=== PATIENT | female | born 1985 | race Caucasian/White ===

== ENCOUNTER 2016-05-20 11:36 | Outpatient (CLI) ==
[2012-10-31 13:44] VITALS: TEMP 97.1
[2016-05-05 17:15] VITALS: BMI 21.1
--- NOTE | 2016-05-20 11:57 | DI ---
EXAM: Two-view chest HISTORY: Emphysema. TECHNIQUE: Frontal and lateral views of the chest were obtained. Comparison 01/30/2016. FINDINGS: The heart is stable size. Lungs are clear. The pulmonary vasculature appears normal. T he osseous structures and mediastinal contours are normal. IMPRESSION: No active cardiopulmonary disease.
== END 2016-05-20 11:37 | disposition home or self-care (01) ==
LOC: RAD 11:36
PROVIDERS: ATTEND Nurse Practitioner Family
DX: J43.9 Emphysema, unspecified (principal)

== ENCOUNTER 2016-09-16 11:57 | Outpatient (CLI) ==
[2012-10-31 13:44] VITALS: TEMP 97.1
[2016-05-05 17:15] VITALS: BMI 21.1
--- NOTE | 2016-09-16 12:38 | DI ---
EXAM: Four views of the left knee HISTORY: Left knee pain. COMPARISON: Right knee x-ray 09/16/2016 FINDINGS: Medial and lateral compartments of the left knee are normal. There is no lytic or blastic lesion. The patella is normal in position without fracture. The soft tissues are normal. There is no displaced fracture or dislocation. IMPRESSION: No acute abnormality or displaced fracture of the left knee.
--- NOTE | 2016-09-16 12:38 | DI ---
EXAM: Four views of the right knee HISTORY: Right knee pain. COMPARISON: Same day left knee x-ray FINDINGS: Medial compartment is mildly narrowed. The lateral compartment is unremarkable. The ledesma lla is normal in position without fracture. There is no displaced fracture or dislocation. Soft ti ssues are unremarkable. There is no lytic or blastic lesion. IMPRESSION: No acute abnormality or displaced fracture with mild medial compartmental narrowing.
== END 2016-09-16 11:58 | disposition home or self-care (01) ==
LOC: RAD 11:57
PROVIDERS: ATTEND Nurse Practitioner Family
DX: M25.561 Pain in right knee (principal)

== ENCOUNTER 2016-09-20 14:28 | Emergency (ER) ==
[2016-09-20 14:34] VITALS: BP 120/78; TEMP 97.5; BMI 22.5
--- NOTE | 2016-09-20 14:51 | ED.PDOC ---
General ED Provider: Dr. CURTIS CHAWLA Chief Complaint: Tooth Problem Stated Complaint: dental pain/ extraction 2 days ago Time Seen by Physician: 14:30 (seen with may at all times ) Mode of Arrival: Walk-In Information Source: Patient Exam Limitations: No limitations Primary Care Provider: [facility] Nursing and Triage Documentation Reviewed and Agree: Yes (May present) EENT Complaint Exam - Dental/Oral Complaint/Exam Mechanism of Injury: Trauma (extraction 2 days ago) Onset/Duration: 2 days Timing: Constant Initial Severity: Moderate Current Severity: Moderate (took a norco belonging to her ) Character: Reports: Dull, Aching Aggravating: Reports: Heat, Cold, Chewing Alleviating: Reports: None Associated Signs and Symptoms: Denies: Swelling, Discharge, Fever, Foul odor, Foul taste in mouth Related History: Reports: Similar episode Cardiac Risk Factors: Reports: None Dental/Oral Surgical History: Reports: None Tooth Findings: Present: Gross caries (sacttered . no changes consistent with extractions noted ) Cervical Lymphadenopathy Present: No Review of Systems - Review Of Systems Constitutional: Reports: No symptoms Eyes: Reports: No symptoms Ears, Nose, Mouth, Throat: Reports: No symptoms Respiratory: Reports: No symptoms Cardiac: Reports: No symptoms GI: Reports: No symptoms : Reports: No symptoms Musculoskeletal: Reports: No symptoms Skin: Reports: No symptoms Neurological: Reports: No symptoms Endocrine: Reports: No symptoms Hematologic/Lymphatic: Reports: No symptoms All Other Systems: Reviewed and Negative Past Medical History - Past Medical History Previously Healthy: Yes Endocrine: Reports: None Cardiovascular: Reports: None Respiratory: Reports: None, COPD (spontaneous pneumothroax,) Hematological: Reports: None Gastrointestinal: Reports: None Genitourinary: Reports: None Neuro/Psych: Reports: Anxiety Musculoskeletal: Reports: None Cancer: Reports: None Last Menstrual Period: na Other Pertinent Past Medical History: female surgery , hysterectomy / colapse lunganxietycopd - Surgical History General Surgical History: Reports: Hysterectomy, Tonsillectomy, Other (female surgery / collapsed lung), Unknown (thoracotomy ) - Family History Family History: Reports: Unknown - Social History Smoking Status: Current every day smoker, Heavy tobacco smoker Hx Substance Use: No (frequent ER visits for pain) Alcohol Screening: None - Immunizations Tetanus Shot up to Date: Yes Physical Exam - Physical Exam Appearance: Well-appearing, No pain distress, Well-nourished Eyes: BARBARA, EOMI, Conjunctiva clear ENT: Ears normal, Nose normal, Oropharynx normal Respiratory: Airway patent, Breath sounds clear, Breath sounds equal, Respirations nonlabored Cardiovascular: RRR, Pulses normal, No rub, No murmur GI/: Soft, Nontender, No masses, Bowel sounds normal, No Organomegaly Musculoskeletal: Normal strength, ROM intact, No edema, No calf tenderness Skin: Warm, Dry, Normal color Neurological: Sensation intact, Motor intact, Reflexes intact, Cranial nerves intact, Alert, Oriented Psychiatric: Affect appropriate, Mood appropriate Critical Care Note - Critical Care Note Total Time (mins): 0 Course - Course Vital Signs: Temp Pulse Resp BP Pulse Ox 09/20/16 14:29 97.5 F L 76 16 120/78 98 Departure - Departure Time of Disposition: 14:52 (may at bedside at all times) Disposition: HOME SELF-CARE Discharge Problem: Toothache Instructions: Toothache (ED), Dental Caries (ED) Condition: Good Pt referred to PMD for follow-up: No Allergies/Adverse Reactions: Allergies codeine Adverse Reaction (Verified 09/20/16 14:38) morphine Adverse Reaction (Verified 09/20/16 14:38) PT STATES HAS B/P ISSUES WITH MORPHINE oxaprozin [From Daypro] Adverse Reaction (Verified 09/20/16 14:38) prednisone Adverse Reaction (Verified 09/20/16 14:38) Sulfa (Sulfonamide Antibiotics) Adverse Reaction (Verified 09/20/16 14:38) Home Medications: Ambulatory Orders Estradiol 1 each TD DAILY 09/16/16 Ampicillin Trihydrate [Ampicillin] 500 mg PO TID 09/20/16
== END 2016-09-20 15:00 | disposition home or self-care (01) ==
LOC: ED 14:28
DX: K08.89 Other specified disorders of teeth and supporting structures (principal); K02.7 Dental root caries; K08.409 Partial loss of teeth, unspecified cause, unspecified class; Z98.890 Other specified postprocedural states
CPT/HCPCS: 99282

== ENCOUNTER 2016-12-29 09:49 | Emergency (ER) ==
[2016-12-29 09:54] VITALS: BP 124/85; TEMP 97.6; BMI 22.7
[2016-12-29] MEDS ORDERED: TORADOL IM STA (10:08)
[2016-12-29 10:19] LABS: BASOPHILS % (AUTO) 0.5 % (0.0-3.0); EOSINOPHILS # (AUTO) 0.1 K/ul (0.0-0.7); EOSINOPHILS % (AUTO) 1.4 % (0.0-7.0); HEMATOCRIT 44.5 % (37.0-47.0); HEMOGLOBIN 15.4 g/dl (12.0-16.0); IMMATURE GRANULOCYTE % (AUTO) 0.3 % (0.0-5.0); LYMPHOCYTES # (AUTO) 1.9 K/uL (0.60-3.4); LYMPHOCYTES % (AUTO) 24.7 (10.0-50.0); MEAN CORPUSCULAR HEMOGLOBIN 30.6 pg (27.0-31.0); MEAN CORPUSCULAR HGB CONC 34.6 (31.8-35.4); MEAN CORPUSCULAR VOLUME 88.5 fl (81.0-99.0); MONOCYTES # (AUTO) 0.6 K/uL (0.4-2.0); MONOCYTES % (AUTO) 7.1 (0-10); NEUTROPHILS # (AUTO) 5.1 K/ul (2.0-6.9); PLATELET COUNT 261 10^3/uL (140-440); RED BLOOD COUNT 5.03 10^6/ul (4.20-5.40); WHITE BLOOD COUNT 7.77 K/ul (4.6-10.2)
[2016-12-29 10:44] LABS: ALBUMIN 4.2 g/dL (3.4-5.0); ALBUMIN/GLOBULIN RATIO 1.45; ANION GAP 13.8; BILIRUBIN,TOTAL 0.64 mg/dL (0.00-1.20); CALCIUM 9.6 mg/dL (8.2-10.2); CREATININE 0.75 mg/dL (0.60-1.30); POTASSIUM 3.8 mmol/L (3.5-5.10); TOTAL PROTEIN 7.1 g/dL (6.4-8.2)
--- NOTE | 2016-12-29 10:48 | US ---
Exam: Bishop-scale and color Doppler ultrasonographic evaluation of the right upper quadrant. Comparison: CT abdomen pelvis performed on the same day. CT abdomen pelvis performed 05/02/2015. Reason for exam: Pain right upper quadrant. FINDINGS: The liver measures approximately 10.98 cm in length with normal appearing echotexture and no intrahepatic ductal dilatation. There is normal antegrade portal venous flow without perihepati c free fluid. The gallbladder is unremarkable without intraluminal stone, sludge or polyp. The gallbladder wall measures 0.19 cm which is within normal limits. The common bile duct is unremarkable measuring 0.33 cm without intraluminal stone or polyp. The partially imaged pancreas is unremarkable. The right kidney measures 11.20 x 3.94 x 4.57 cm without hydronephrosis or nephrolithiasis. Impression: Unremarkable ultrasonographic evaluation of the right upper quadrant.
--- NOTE | 2016-12-29 10:49 | CT ---
EXAM: CT Abdomen without contrast. CT Pelvis without contrast. HISTORY: Right upper quadrant pain. COMPARISON: 05/02/2015. TECHNIQUE: Multiple axial images of the abdomen and pelvis were obtained without intravenous contra st. Images were reformatted in the coronal plane. FINDINGS: Please note that evaluation of the abdominal and pelvic structures is limited due to lack of intravenous contrast. The lung bases are clear. No acute osseous abnormality identified. The liver, gallbladder, pancreas, spleen, adrenal glands, and kidneys demonstrate normal contour. N o calcified renal stones or hydronephrosis detected. The bowel is normal in course and caliber without evidence for obstruction or inflammatory process. The appendix is normal best seen on coronal image 33. Uterus is absent. Urinary bladder is unrema rkable. No free fluid or free air identified. IMPRESSION: No acute abnormality within the abdomen or pelvis.
--- NOTE | 2016-12-29 11:02 | ED.PDOC ---
General ED Provider: Dr. CURTIS CHAWLA Chief Complaint: Abdominal Pain Stated Complaint: RUQ PAIN Time Seen by Physician: 10:00 (SEEN WITH NURSING STAFF AT ALL TIMES NEGATIVE TRAUMA ) Mode of Arrival: Walk-In Information Source: Patient Exam Limitations: No limitations Primary Care Provider: COLLIN BELTRAN Nursing and Triage Documentation Reviewed and Agree: Yes GI Complaint Exam - Abdominal Pain Complaint/Exam Onset: Gradual Duration: TODAY Symptoms Are: Resolved Timing: Intermittent Initial Severity: Moderate Current Severity: None Location of Pain: RUQ Character: Reports: Aching Aggravating: Reports: None Alleviating: Reports: None Associated Signs and Symptoms: Denies: Diaphoresis, Fever, Cough, Chest pain, Dizziness, Back pain, Constipation, Blood in stool, Dysuria, Urinary frequency, Decreased urine output, Decreased appetite, Vaginal bleeding, Vaginal discharge , Nausea, Vomiting, Diarrhea, Sore throat, Decreased activity AAA Risk Factors: Reports: None Cardiac Risk Factors: Reports: Smoking Ectopic Risk Factors: Reports: None Ovarian Torsion Risk Factors: Reports: None Surgical Obstruction Risk Factors: Reports: None Related Surgical History: Reports: None Differential Diagnoses: Bowel Obstruction, Constipation, Gastroenteritis, Pancreatitis Review of Systems - Review Of Systems Constitutional: Reports: No symptoms Eyes: Reports: No symptoms Ears, Nose, Mouth, Throat: Reports: No symptoms Respiratory: Reports: No symptoms Cardiac: Reports: No symptoms GI: Reports: Abdominal pain : Reports: No symptoms Musculoskeletal: Reports: No symptoms Skin: Reports: No symptoms Neurological: Reports: No symptoms Endocrine: Reports: No symptoms Hematologic/Lymphatic: Reports: No symptoms All Other Systems: Reviewed and Negative Past Medical History - Past Medical History Previously Healthy: Yes Endocrine: Reports: None Cardiovascular: Reports: None Respiratory: Reports: None, COPD (spontaneous pneumothroax,) Hematological: Reports: None Gastrointestinal: Reports: None Genitourinary: Reports: None Neuro/Psych: Reports: Anxiety Musculoskeletal: Reports: None Cancer: Reports: None Last Menstrual Period: N/A Other Pertinent Past Medical History: female surgery , hysterectomy / colapse lunganxietycopd - Surgical History General Surgical History: Reports: Hysterectomy, Tonsillectomy, Other (female surgery / collapsed lung), Unknown (thoracotomy ) - Family History Family History: Reports: Unknown - Social History Smoking Status: Current every day smoker, Heavy tobacco smoker Hx Substance Use: No (frequent ER visits for pain) Alcohol Screening: None - Immunizations Tetanus Shot up to Date: Yes Physical Exam - Physical Exam Appearance: Well-appearing, No pain distress, Well-nourished Eyes: BARBARA, EOMI, Conjunctiva clear ENT: Ears normal, Nose normal, Oropharynx normal Respiratory: Airway patent, Breath sounds clear, Breath sounds equal, Respirations nonlabored Cardiovascular: RRR, Pulses normal, No rub, No murmur GI/: Soft, Nontender, No masses, Bowel sounds normal, No Organomegaly Musculoskeletal: Normal strength, ROM intact, No edema, No calf tenderness Skin: Warm, Dry, Normal color Neurological: Sensation intact, Motor intact, Reflexes intact, Cranial nerves intact, Alert, Oriented Psychiatric: Affect appropriate, Mood appropriate Interpretation - Radiology Interpretation Radiology Interpretation By: Radiologist Radiology Results: No acute changes Critical Care Note - Critical Care Note Total Time (mins): 0 Course - Course Hematology/Chemistry: 12/29/16 10:10 12/29/16 10:10 Orders, Labs, Meds: Lab Review 12/29/16 10:10 WBC 7.77 RBC 5.03 Hgb 15.4 Hct 44.5 MCV 88.5 MCH 30.6 MCHC 34.6 RDW Coeff of Carlos 12.2 Plt Count 261 Immature Gran % (Auto) 0.3 Neut % (Auto) 66.0 Lymph % (Auto) 24.7 [place] % (Auto) 7.1 Eos % (Auto) 1.4 Baso % (Auto) 0.5 Immature Gran # (Auto) 0.0 Neut # 5.1 Lymph # 1.9 [place] # 0.6 Eos # 0.1 Baso # 0.0 Sodium 139 Potassium 3.8 Chloride 104 Carbon Dioxide 25 Anion Gap 13.8 BUN 9 Creatinine 0.75 Estimated GFR (MDRD) 89.00 BUN/Creatinine Ratio 12.00 Glucose 112 H Calcium 9.6 Total Bilirubin 0.64 AST 15 ALT 15 Alkaline Phosphatase 61 Total Protein 7.1 Albumin 4.2 Globulin 2.9 Albumin/Globulin Ratio 1.45 Amylase 38 Lipase 10 Orders Category Date Time Status NPO REMINDER: IMAGING ONCE CARE 12/29/16 10:08 Ordered AMYLASE Stat LAB 12/29/16 10:07 Ordered CBC W/ AUTO DIFF Stat LAB 12/29/16 10:07 Ordered COMPREHENSIVE METABOLIC PANEL Stat LAB 12/29/16 10:07 Ordered LIPASE Stat LAB 12/29/16 10:07 Ordered Ketorolac Tromethamine [Toradol] MEDS 12/29/16 10:08 Stat 60 mg IM ONCE STA CT ABDOMEN/PELVIS WO CONTRAST Stat RADS 12/29/16 10:07 Ordered ULTRASOUND ABDOMEN, RT. UPPER QUAD [U/S ABDOMEN, RT. RADS 12/29/16 10:08 Ordered UPPER QUAD] Stat Medications Discontinued Medications Generic Name Dose Route Start Last Admin Trade Name Freq PRN Reason Stop Dose Admin Ketorolac Tromethamine 60 mg 12/29/16 10:08 12/29/16 10:34 Toradol IM 12/29/16 10:09 60 mg ONCE STA Administration Vital Signs: Temp Pulse Resp BP Pulse Ox 12/29/16 09:49 97.6 F 122 H 20 124/85 98 Departure - Departure Time of Disposition: 11:01 Disposition: HOME SELF-CARE Discharge Problem: Abdominal pain Instructions: Abdominal Pain (ED) Condition: Good Pt referred to PMD for follow-up: Yes Allergies/Adverse Reactions: Allergies codeine Adverse Reaction (Verified 09/20/16 14:38) morphine Adverse Reaction (Verified 09/20/16 14:38) PT STATES HAS B/P ISSUES WITH MORPHINE oxaprozin [From Daypro] Adverse Reaction (Verified 09/20/16 14:38) prednisone Adverse Reaction (Verified 09/20/16 14:38) Sulfa (Sulfonamide Antibiotics) Adverse Reaction (Verified 09/20/16 14:38) Home Medications: Ambulatory Orders 1 [No Reported Medications] 12/29/16
== END 2016-12-29 11:00 | disposition home or self-care (01) ==
LOC: ED 09:49
DX: R10.11 Right upper quadrant pain (principal); F17.210 Nicotine dependence, cigarettes, uncomplicated
CPT/HCPCS: 36415; 80053; 82150; 83690; 85025; 96372; 99283

== ENCOUNTER 2017-12-08 12:10 | Outpatient (CLI) ==
[2012-10-31 13:44] VITALS: TEMP 97.1
== END 2017-12-08 12:11 | disposition home or self-care (01) ==
LOC: FCC-LAB 12:10
PROVIDERS: ATTEND Family Medicine
DX: N12 Tubulo-interstitial nephritis, not specified as acute or chronic (principal)
CPT/HCPCS: 87086

== ENCOUNTER 2017-12-09 08:15 | Outpatient (CLI) ==
[2012-10-31 13:44] VITALS: TEMP 97.1
--- NOTE | 2017-12-09 11:05 | US ---
EXAM: Ultrasound retroperitoneal complete. HISTORY: Tubulo-interstitial nephritis. COMPARISON: Abdominal CT 12/29/2016. TECHNIQUE: Multiple mcfadden scale and color Doppler images. FINDINGS: Right kidney measures 9.9 x 3.4 x 4 cm. The left kidney measures 10.5 x 4.9 x 3.8 cm. Co rticomedullary differentiation is normal. There is no hydronephrosis. Urinary bladder is not seen, likely collapsed. IMPRESSION: No sonographic abnormality of the kidneys.
== END 2017-12-09 08:16 | disposition home or self-care (01) ==
LOC: RAD 08:15
PROVIDERS: ATTEND Family Medicine
DX: N12 Tubulo-interstitial nephritis, not specified as acute or chronic (principal)
CPT/HCPCS: 36415; 80053; 85025; 87086

== ENCOUNTER 2018-01-12 16:17 | Emergency (ER) ==
[2018-01-12 16:21] VITALS: BP 124/82; TEMP 97.2; BMI 21.1
[2018-01-12] MEDS ORDERED: LIDOCAINE HCL 1% SDV SUBCUT STA (16:34)
--- NOTE | 2018-01-12 16:47 | ED.PDOC ---
General ED Provider: Dr. CURTIS CHAWLA Chief Complaint: Finger Laceration Stated Complaint: laceration web space right thumb and index Time Seen by Physician: 16:18 Mode of Arrival: Walk-In Information Source: Patient Exam Limitations: No limitations Primary Care Provider: PHILIP CHAVIRA Nursing and Triage Documentation Reviewed and Agree: Yes Does patient meet sepsis criteria?: No System Inflammatory Response Syndrome: Not Applicable Sepsis Protocol: For patient's 13 years and over: Temp is 96.8 and below OR 101 and greater Pulse >90 BPM Resp >20/minute Acutely Altered Mental Status Are patient's symptoms suggestive of a new infection, such as: -Pneumonia -Skin, Soft Tissue -Endocarditis -UTI -Bone, Joint Infection -Implantable Device -Acute Abdominal Infection -Wound Infection -Meningitis -Blood Stream Catheter Infection -Unknown Skin Complaint Exam - Lac/Torso/Upper Ext. Complaint/Exam Location of Injury: Right (hand index and right thumb web space ) Mechanism of Injury: Laceration Onset/Duration: 1 hr ago Symptoms Are: Still present Initial Severity: Mild Current Severity: Mild Aggravating: None Alleviating: Compression Associated Signs and Symptoms: Denies: Fever, Chills, Erythema, Numbness, Tingling Differential Diagnoses: Laceration (see photos) Review of Systems - Review Of Systems Constitutional: Reports: No symptoms Eyes: Reports: No symptoms Ears, Nose, Mouth, Throat: Reports: No symptoms Respiratory: Reports: No symptoms Cardiac: Reports: No symptoms GI: Reports: No symptoms : Reports: No symptoms Musculoskeletal: Reports: Other (laceration right hand see photos) Skin: Reports: No symptoms Neurological: Reports: No symptoms Endocrine: Reports: No symptoms Hematologic/Lymphatic: Reports: No symptoms All Other Systems: Reviewed and Negative Past Medical History - Past Medical History Previously Healthy: Yes Endocrine: Reports: None Cardiovascular: Reports: None Respiratory: Reports: None, COPD (spontaneous pneumothroax,) Hematological: Reports: None Gastrointestinal: Reports: None Genitourinary: Reports: None Neuro/Psych: Reports: Anxiety Musculoskeletal: Reports: None Cancer: Reports: None Last Menstrual Period: n/a Other Pertinent Past Medical History: female surgery , hysterectomy / colapse lunganxietycopd - Surgical History General Surgical History: Reports: Hysterectomy, Tonsillectomy, Other (female surgery / collapsed lung), Unknown (thoracotomy ) - Family History Family History: Reports: Unknown - Social History Smoking Status: Current every day smoker, Heavy tobacco smoker Hx Substance Use: No (frequent ER visits for pain) Alcohol Screening: None - Immunizations Tetanus Shot up to Date: No (more than 5 years.) Physical Exam - Physical Exam Appearance: Well-appearing, No pain distress, Well-nourished Eyes: BARBARA, EOMI, Conjunctiva clear ENT: Ears normal, Nose normal, Oropharynx normal Respiratory: Airway patent, Breath sounds clear, Breath sounds equal, Respirations nonlabored Cardiovascular: RRR, Pulses normal, No rub, No murmur GI/: Soft, Nontender, No masses, Bowel sounds normal, No Organomegaly Musculoskeletal: Normal strength, ROM intact, No edema, No calf tenderness Skin: Warm, Dry (laceration right hand see photos) Neurological: Sensation intact, Motor intact, Reflexes intact, Cranial nerves intact, Alert, Oriented Psychiatric: Affect appropriate, Mood appropriate Procedures - Laceration/Wound Repair No standard instances Wound Description: Linear Wound Length (cm): 1cm Wound Width: 1mm Wound Depth: 1mm Wound Explored: Clean Wound Irrigated: No Wound Prep: Epifanioiclenicolle Anesthesia: Lidocaine (1 ml plain) Wound Margins: Vermilion border aligned Wound Repaired With: Sutures Suture Size and Type: 4.o prolene Number of Sutures: 5 Number of Zoe: 0 Layer Closure?: No Critical Care Note - Critical Care Note Total Time (mins): 0 Course - Course Orders, Labs, Meds: Orders Category Date Time Status Lidocaine HCl/Pf [Lidocaine HCl 1% Sdv] MEDS 01/12/18 16:34 Stat 5 ml SUBCUT ONCE STA Medications Discontinued Medications Generic Name Dose Route Start Last Admin Trade Name Freq PRN Reason Stop Dose Admin Lidocaine HCl 5 ml 01/12/18 16:34 Lidocaine Hcl 1% Sdv SUBCUT 01/12/18 16:35 ONCE STA Vital Signs: Temp Pulse Resp BP Pulse Ox 01/12/18 16:18 97.2 F L 58 L 16 124/82 96 Departure - Departure Time of Disposition: 16:47 Disposition: HOME SELF-CARE Discharge Problem: Finger laceration Qualifiers: Encounter type: initial encounter Finger: index finger Foreign body presence: without foreign body Laterality: right Instructions: Laceration (ED), Care For Your Stitches (ED) Condition: Good Pt referred to PMD for follow-up: Yes IPMP verified?: No Additional Instructions: Please call your Family Physician as soon as possible to schedule a follow-up appointment. Allergies/Adverse Reactions: Allergies codeine Adverse Reaction (Verified 01/12/18 16:21) morphine Adverse Reaction (Verified 01/12/18 16:21) PT STATES HAS B/P ISSUES WITH MORPHINE oxaprozin [From Daypro] Adverse Reaction (Verified 01/12/18 16:21) prednisone Adverse Reaction (Verified 01/12/18 16:21) Sulfa (Sulfonamide Antibiotics) Adverse Reaction (Verified 01/12/18 16:21)
[2018-01-12] MEDS ORDERED: LIDOCAINE HCL 1% SDV ONE (17:58)
== END 2018-01-12 16:54 | disposition home or self-care (01) ==
LOC: ED 16:17
DX: S61.411A Laceration without foreign body of right hand, initial encounter (principal); F17.210 Nicotine dependence, cigarettes, uncomplicated; W45.8XXA Other foreign body or object entering through skin, initial encounter
CPT/HCPCS: 99283

== ENCOUNTER 2018-07-11 18:02 | Outpatient (CLI) ==
[2012-10-31 13:44] VITALS: TEMP 97.1
[2018-04-24 15:21] VITALS: BMI 21.1
== END 2018-07-11 18:03 | disposition home or self-care (01) ==
LOC: FCC-LAB 18:02
PROVIDERS: ATTEND Family Medicine
DX: R10.9 Unspecified abdominal pain (principal)
CPT/HCPCS: 87086

== ENCOUNTER 2018-07-12 10:07 | Outpatient (CLI) ==
[2012-10-31 13:44] VITALS: TEMP 97.1
[2018-04-24 15:21] VITALS: BMI 21.1
--- NOTE | 2018-07-12 11:14 | US ---
Exam: Bishop-scale and color Doppler ultrasonographic evaluation of the kidneys and urinary bladder. Comparison: CT abdomen pelvis performed 12/29/2016. Reason for exam: Abdominal pain. FINDINGS: The right kidney measures 10.9 x 3.7 x 4.8 cm without hydronephrosis or nephrolithiasis. The left kidney measures 10.1 x 4.6 x 4.2 cm without hydronephrosis or nephrolithiasis. The bladder appears grossly unremarkable. Impression: No hydronephrosis or nephrolithiasis is seen in either kidney.
== END 2018-07-12 10:08 | disposition home or self-care (01) ==
LOC: RAD 10:07
PROVIDERS: ATTEND Family Medicine
DX: R10.9 Unspecified abdominal pain (principal)

== ENCOUNTER 2018-08-04 14:34 | Emergency (ER) ==
[2018-08-04 14:39] VITALS: BP 111/79; TEMP 98.2; BMI 21.7
== END 2018-08-04 16:46 | disposition left against medical advice (07) ==
LOC: ED 14:34
DX: K08.89 Other specified disorders of teeth and supporting structures (principal); K04.7 Periapical abscess without sinus; F17.210 Nicotine dependence, cigarettes, uncomplicated

== ENCOUNTER 2018-08-04 22:16 | Emergency (ER) ==
[2018-08-04 22:17] VITALS: BMI 21.7
[2018-08-04 22:24] VITALS: BP 103/67; TEMP 98.2
--- NOTE | 2018-08-04 22:44 | ED.PDOC ---
General ED Provider: Dr. SHIRA CAGLE Chief Complaint: Tooth Problem Stated Complaint: Patient states she has had problems with her lower teeth and is to see her dentist. Has pain medications and states that it is draining. She would like to it treated before she can see the dentist. Time Seen by Physician: 22:42 Mode of Arrival: Walk-In Information Source: Patient Exam Limitations: No limitations Primary Care Provider: PHILIP CHAVIRA Nursing and Triage Documentation Reviewed and Agree: Yes Does patient meet sepsis criteria?: No System Inflammatory Response Syndrome: Not Applicable Sepsis Protocol: For patient's 13 years and over: Temp is 96.8 and below OR 101 and greater Pulse >90 BPM Resp >20/minute Acutely Altered Mental Status Are patient's symptoms suggestive of a new infection, such as: -Pneumonia -Skin, Soft Tissue -Endocarditis -UTI -Bone, Joint Infection -Implantable Device -Acute Abdominal Infection -Wound Infection -Meningitis -Blood Stream Catheter Infection -Unknown EENT Complaint Exam - Dental/Oral Complaint/Exam Mechanism of Injury: No known trauma Onset/Duration: 3 days Symptoms Are: Still present Timing: Constant Initial Severity: Moderate Current Severity: Severe Location: Right lower canine Character: Reports: Aching, Throbbing Aggravating: Reports: Heat, Cold, Chewing Alleviating: Reports: None Associated Signs and Symptoms: Reports: Swelling, Discharge, Foul odor, Foul taste in mouth Related History: Reports: Similar episode Cardiac Risk Factors: Reports: None Dental/Oral Surgical History: Reports: Third Molar Extractions Tooth Findings: Present: Percussion tenderness, Gross decay, Gross caries, Abcess Review of Systems - Review Of Systems Constitutional: Reports: No symptoms Eyes: Reports: No symptoms Ears, Nose, Mouth, Throat: Reports: Mouth pain, Mouth swelling Respiratory: Reports: No symptoms Cardiac: Reports: No symptoms GI: Reports: No symptoms : Reports: No symptoms Musculoskeletal: Reports: No symptoms Skin: Reports: No symptoms Neurological: Reports: No symptoms Endocrine: Reports: No symptoms Hematologic/Lymphatic: Reports: No symptoms All Other Systems: Reviewed and Negative Past Medical History - Past Medical History Previously Healthy: Yes Endocrine: Reports: None Cardiovascular: Reports: None Respiratory: Reports: None, COPD (spontaneous pneumothroax,) Hematological: Reports: None Gastrointestinal: Reports: None Genitourinary: Reports: None Neuro/Psych: Reports: Anxiety Musculoskeletal: Reports: None Cancer: Reports: None Last Menstrual Period: hyst 2011 Other Pertinent Past Medical History: female surgery , hysterectomy / colapse lunganxietycopd - Surgical History General Surgical History: Reports: Hysterectomy, Tonsillectomy, Other (female surgery / collapsed lung), Unknown (thoracotomy ) - Family History Family History: Reports: Unknown - Social History Smoking Status: Current every day smoker, Heavy tobacco smoker Hx Substance Use: No Alcohol Screening: Occasionally - Immunizations Tetanus Shot up to Date: Yes Physical Exam - Physical Exam Appearance: Ill-appearing Ill-appearing: Mild Pain Distress: Moderate Neck: Supple Respiratory: Airway patent, Breath sounds clear, Breath sounds equal, Respirations nonlabored Cardiovascular: RRR, Pulses normal, No rub, No murmur Skin: Warm, Dry Neurological: Alert, Oriented Critical Care Note - Critical Care Note Total Time (mins): 0 Course - Course Vital Signs: Temp Pulse Resp BP Pulse Ox 08/04/18 22:17 98.2 F 88 20 103/67 97 Departure - Departure Time of Disposition: 22:44 Disposition: HOME SELF-CARE Discharge Problem: Toothache, Dental caries extending into pulp, Dental abscess Instructions: Dental Abscess (ED), Toothache (ED) Condition: Stable Pt referred to PMD for follow-up: Yes IPMP verified?: No Additional Instructions: Take Medications as prescribed Follow up with Dentist for Evaluation Prescriptions: Clindamycin HCl 300 mg PO TID #30 capsule Allergies/Adverse Reactions: Allergies ketorolac tromethamine [From Toradol] Adverse Reaction (Mild, Verified 08/04/18 22:25) Headache codeine Adverse Reaction (Verified 08/04/18 22:25) morphine Adverse Reaction (Verified 08/04/18 22:25) PT STATES HAS B/P ISSUES WITH MORPHINE oxaprozin [From Daypro] Adverse Reaction (Verified 08/04/18 22:25) prednisone Adverse Reaction (Verified 08/04/18 22:25) Sulfa (Sulfonamide Antibiotics) Adverse Reaction (Verified 08/04/18 22:25) Home Medications: Ambulatory Orders Clindamycin HCl 300 mg PO TID #30 capsule 08/04/18 Clonazepam [Klonopin] 0.5 mg PO BEDTIME PRN 08/04/18 Hydrocodone Bit/Acetaminophen [[place] 10-325] 1 each PO Q6HR PRN 08/04/18 Disposition Discussed With: Patient
[2018-08-04] MEDS ORDERED: CLEOCIN PO STA (22:45)
== END 2018-08-04 22:58 | disposition home or self-care (01) ==
LOC: ED 22:16
DX: K08.89 Other specified disorders of teeth and supporting structures (principal); K02.7 Dental root caries; K04.7 Periapical abscess without sinus; F17.210 Nicotine dependence, cigarettes, uncomplicated
CPT/HCPCS: 99282

== ENCOUNTER 2018-09-20 14:17 | Outpatient (CLI) | payer MEDICAID, OTHER ==
[2012-10-31 13:44] VITALS: TEMP 97.1
== END 2018-09-20 14:18 | disposition home or self-care (01) ==
LOC: RHC-LAB 14:17 → FCC-LAB 14:18
PROVIDERS: ATTEND Family Medicine
DX: Z51.81 Encounter for therapeutic drug level monitoring (principal); Z79.899 Other long term (current) drug therapy; F41.9 Anxiety disorder, unspecified
CPT/HCPCS: 80306

== ENCOUNTER 2018-09-27 10:56 | Outpatient (CLI) ==
[2012-10-31 13:44] VITALS: TEMP 97.1
--- NOTE | 2018-09-27 12:14 | DI ---
EXAM: Thoracic spine three view HISTORY: Dorsalgia, unspecified COMPARISON: None FINDINGS: No fracture or subluxation. Vertebral bodies normal height. Leftward curvature upper tho racic spine and mild rightward curvature lower thoracic/upper lumbar spine Intervertebral disc spaces maintained. Intervertebral disk spaces are maintained. No fracture. IMPERSSION: No fracture or subluxation.
--- NOTE | 2018-09-27 12:26 | DI ---
EXAM: Lumbar spine five views, including oblique views HISTORY: Dorsalgia, unspecified COMPARISON: None TECHNIQUE: Five views lumbar spine were performed, including oblique view FINDINGS: Sacroiliac joints intact. Sacral arcuate intact. Mild rightward curvature lower thoracic /upper lumbar spine and mild leftward curvature mid/lower lumbar spine. Vertebral bodies normal heig ht. No fracture. No subluxation. Multilevel marginal osteophyte formation. Mild multilevel interv ertebral disc space narrowing. Suggestion facet arthrosis in the lower lumbar spine. IMPRESSION: Chronic discogenic degenerative disease and facet arthrosis.
== END 2018-09-27 10:57 | disposition home or self-care (01) ==
LOC: RAD 10:56
PROVIDERS: ATTEND Family Medicine
DX: M54.9 Dorsalgia, unspecified (principal); G89.29 Other chronic pain

== ENCOUNTER 2023-11-10 17:46 | Observation (INO) ==
--- NOTE | 2023-11-10 18:03 | ED.PDOC ---
General ED Provider: Dr. SHIRA CAGLE Chief Complaint: Abdominal Pain Stated Complaint: Patient is a 38-year-old female who comes to the ER with complaints of a 1 day history of abdominal pain that feels like dyspepsia. She states that her symptoms got worse now has started vomiting. Her symptoms have been worse since about 3 hours ago. She admits to daily alcohol use about 10-15 beers today she is on he had 8. Time Seen by Provider: 11/10/23 18:02 Mode of Arrival: Walk-In Information Source: Patient and Family Exam Limitations: No limitations Primary Care Provider: PAMELLA MORENO APRN, [facility] Nursing and Triage Documentation Reviewed and Agree: Yes What is Opioid Naive?: *Opioid Naive implies the patient is not already taking opioids or not chronically receiving opioids on a daily basis. *PRN dosing is not "usually" associated with tolerance. *Patients are at higher risk of over-sedation and aspiration. What is Opioid Tolerant?: *Opioid Tolerance implies less than the expected response to an opioid. *Acquired tolerance is defined by the patient taking 60mg of oral morphine daily (or equianalgesic dose of another opioid) for 1 week or more. *Often associated with chronic pain. *May take more than usual dose to achieve desired pain control. GI Complaint Exam Abdominal Pain Complaint/Exam Onset: Sudden Duration: 1 day Symptoms Are: Still present Timing: Constant Initial Severity: Moderate Current Severity: Severe Location of Pain: LUQ, LLQ and Epigastric Character: Reports Dull, Aching and Cramping Aggravating: Reports None Alleviating: Reports None Associated Signs and Symptoms: Reports Nausea and Vomiting; Denies Vaginal bleeding Related Surgical History: Reports BSO and Tubal ligation Abdominal Findings: Absent McBurney's Point tender Female Body Picture: 2 1. area of pain and tenderness Differential Diagnoses: Appendicitis, Pancreatitis and PUD Review of Systems Review Of Systems Constitutional: Reports Loss of appetite [facility] Medical History Pneumonia J18.9 - Pneumonia, unspecified organism (ICD-10) Pneumothorax on right J93.9 - Pneumothorax, unspecified (ICD-10) Pneumothorax on left J93.9 - Pneumothorax, unspecified (ICD-10) Chronic obstructive pulmonary disease J44.9 - Chronic obstructive pulmonary disease, unspecified (ICD-10) Depression Pt aware of mental health service F32.9 - Major depressive disorder, single episode, unspecified (ICD-10) Anxiety F41.9 - Anxiety disorder, unspecified (ICD-10) Family History FATHER Cerebrovascular accident COPD (chronic obstructive pulmonary disease) Grandfather/Grandmother Aneurysm Social History (Updated 11/10/23 @ 21:40 by LILA DAN RN) Smoking and tobacco status: Current every day smoker Tobacco type: cigarettes Smoking packs per day: 1 Smoking cigarettes per day: 20.0 Tobacco: How many years used: 25 Quit status: not considering quitting Second hand smoke exposure: Yes Alcohol intake: current Alcohol intake frequency: 3 or more drinks per day Alcohol type: beer Counseling given: No Counseling provided: none Substance use type: does not use Counseling given: No Counseling provided: none Genesis/church: [employer] Special genesis needs: No Agree to transfusion: Yes Adopted: No Caregiver/support person: No Foster care: No Household members: spouse and children Housing: house Marital status: M Lives independently: Yes Daycare: no daycare Number of children: 3 Number of grandchildren: 0 Highest education level completed: GED or equivalent Financial difficulty paying for basics: not very hard service: No long term: No Current occupational status: disabled Current occupational exposures/hazards: No Pets and animals: Yes (dogs, cats, bird) Leisure activites: music History of recent travel: Yes Sexually active: Yes Do you think of yourself as: straight/heterosexual Current gender identity: female Seatbelt use: always Helmet use: No Drives intoxicated or rides with intoxicated warehouse driver: No Current diet type/program: regular Well-balanced diet: about half the time Caffeine: Yes Eating out: 1-3 times/week Reads food labels: seldom or never During the past year weight has: remained stable Water heater temperature set < 120 degrees: Yes Working smoke detector in home: Yes Fire extinguisher in home: Yes Carbon monoxide detector in home: Yes Firearms in home: Yes Firearms unloaded and locked: Yes What type of physical activity do you participate in?: walking Physical activity functional status: independent ambulation How many days of moderate to strenuous exercise, like a brisk walk, did you do in the last 7 days: 3 Surgical History History of respiratory system surgery thoraocotomy Z98.890 - Other specified postprocedural states (ICD-10) History of surgery piladonial cyst Z98.890 - Other specified postprocedural states (ICD-10) History of tubal ligation Z98.51 - Tubal ligation status (ICD-10) Status post tonsillectomy Z90.89 - Acquired absence of other organs (ICD-10) History of oophorectomy Status post hysterectomy Z90.710 - Acquired absence of both cervix and uterus (ICD-10) History of dental surgery Z92.89 - Personal history of other medical treatment (ICD-10) Female Reproductive History Menstrual Hx Hysterectomy: Yes Hx Tubal Ligation: No Physical Exam Physical Exam Appearance: Reports Ill-appearing Respiratory: Reports Airway patent, Breath sounds clear, Breath sounds equal and Breath sounds diminished Cardiovascular: Reports RRR, Pulses normal and No rub Musculoskeletal: Reports Normal strength, ROM intact and No edema Interpretation Radiology Interpretation Radiology Interpretation By: Radiologist Radiology Results: Positive (Acute interstitial pancreatitis. No peripancreatic fluid collection. Hepatic steatosis. ) Exam Interpreted: CT Scan Critical Care Note Critical Care Note Total Critical Care Time (mins): 30 Course Course 11/10/23 18:25 11/10/23 18:25 Orders, Labs, Meds: Lab Review 11/10/23 11/10/23 11/10/23 18:25 18:28 19:03 WBC 16.26 H RBC 4.52 Hgb 14.2 Hct 41.8 MCV 92.5 MCH 31.4 H MCHC 34.0 RDW Coeff of Carlos 12.0 Plt Count 374 Immature Gran % (Auto) 0.7 Neut % (Auto) 72.8 Lymph % (Auto) 17.2 [place] % (Auto) 8.0 Eos % (Auto) 1.0 Baso % (Auto) 0.3 Neut # (Auto) 11.8 H Lymph # (Auto) 2.8 [place] # (Auto) 1.3 Eos # (Auto) 0.2 Baso # (Auto) 0.1 Immature Gran # (Auto) 0.1 Sodium 134.8 Potassium 3.62 Chloride 100.3 Carbon Dioxide 17.9 L Anion Gap 20.22 BUN 8.9 Creatinine 0.53 L Estimated GFR (MDRD) 128.00 BUN/Creatinine Ratio 16.79 Glucose 112.3 H Calcium 10.10 Total Bilirubin 0.66 AST 124.6 H ALT 104.8 H Alkaline Phosphatase 113.7 Total Protein 8.39 H Albumin 5.43 H Globulin 2.96 Albumin/Globulin Ratio 1.83 Triglycerides 121.2 Cholesterol 280.3 H LDL Cholesterol, Calc 131 VLDL Cholesterol 24 HDL Cholesterol 125.3 H Cholesterol/HDL Ratio 2.2 L Amylase 883.5 H* Lipase 55205.3 H Urine Color Yellow Urine Clarity Slightly Urine pH 5.5 Ur Specific [place] 1.010 Urine Protein Negative Urine Glucose (UA) Negative Urine Ketones Negative Urine Blood Negative Urine Nitrite Negative Urine Bilirubin Negative Urine Urobilinogen 0.2 Ur Leukocyte Esterase Negative Urine Microscopic WBC 0-2 Ur Squamous Epith Cells 5-10 Amorphous Sediment 1+ Urine Bacteria Trace Urine Mucus 1+ Plasma/Serum Alcohol < 10.0 SARS CoV-2 RNA Rapid REUBEN 11/10/23 19:15 WBC RBC Hgb Hct MCV MCH MCHC RDW Coeff of Carlos Plt Count Immature Gran % (Auto) Neut % (Auto) Lymph % (Auto) [place] % (Auto) Eos % (Auto) Baso % (Auto) Neut # (Auto) Lymph # (Auto) [place] # (Auto) Eos # (Auto) Baso # (Auto) Immature Gran # (Auto) Sodium Potassium Chloride Carbon Dioxide Anion Gap BUN Creatinine Estimated GFR (MDRD) BUN/Creatinine Ratio Glucose Calcium Total Bilirubin AST ALT Alkaline Phosphatase Total Protein Albumin Globulin Albumin/Globulin Ratio Triglycerides Cholesterol LDL Cholesterol, Calc VLDL Cholesterol HDL Cholesterol Cholesterol/HDL Ratio Amylase Lipase Urine Color Urine Clarity Urine pH Ur Specific [place] Urine Protein Urine Glucose (UA) Urine Ketones Urine Blood Urine Nitrite Urine Bilirubin Urine Urobilinogen Ur Leukocyte Esterase Urine Microscopic WBC Ur Squamous Epith Cells Amorphous Sediment Urine Bacteria Urine Mucus Plasma/Serum Alcohol SARS CoV-2 RNA Rapid REUBEN Negative Orders Category Date Time Status ADMIT OBSERVATION [PLACE PATIENT OBSERVATION] .TO ADMISSION 11/10/23 19:25 Active MEDSURG (MONITORED BED) ACTIVITY .Up ad Alejandrina CARE 11/10/23 19:24 Active [facility] CARE 11/10/23 19:28 Active INTAKE & OUTPUT Q8HR CARE 11/10/23 19:24 Active NPO REMINDER: IMAGING ONCE CARE 11/10/23 19:26 Active NPO REMINDER: LAB TEST ONCE CARE 11/10/23 19:03 Active TELEMETRY MONITORING TELE CARE 11/10/23 19:25 Active VITAL SIGNS Q4HR CARE 11/10/23 19:24 Active NOTHING BY MOUTH DIETARY 11/10/23 Dinner Ordered ED IV/MEDIPORT/POWERPORT .ONCE EMERGENCY 11/10/23 18:11 Active AMYLASE Stat LAB 11/10/23 18:25 Completed CBC W/ AUTO DIFF DAILY@0600 LAB 11/11/23 06:00 Ordered CBC W/ AUTO DIFF DAILY@0600 LAB 11/12/23 06:00 Ordered CBC W/ AUTO DIFF Stat LAB 11/10/23 18:25 Completed COMPREHENSIVE METABOLIC PANEL DAILY@0600 LAB 11/11/23 06:00 Ordered COMPREHENSIVE METABOLIC PANEL DAILY@0600 LAB 11/12/23 06:00 Ordered COMPREHENSIVE METABOLIC PANEL Stat LAB 11/10/23 18:25 Completed ETOH LEVEL [BLOOD ALCOHOL] Stat LAB 11/10/23 18:25 Completed LIPASE DAILY@0600 LAB 11/11/23 06:00 Ordered LIPASE DAILY@0600 LAB 11/12/23 06:00 Ordered LIPASE Stat LAB 11/10/23 18:25 Completed LIPID PANEL Stat LAB 11/10/23 19:03 Completed SARS COV-2 RNA RAPID REUBEN Stat LAB 11/10/23 19:15 Completed URINALYSIS C & S IF INDICATED Stat LAB 11/10/23 18:28 Completed 0.9 % Sodium Chloride [Saline Flush] Meds 11/10/23 18:11 Active 1 syr IVF PRN PRN Famotidine Inj [Pepcid] Meds 11/10/23 18:11 Discontinued 20 mg IVP ONCE ONE Fentanyl Citrate/Pf [Sublimaze] Meds 11/10/23 19:05 Discontinued 50 mcg IVP ONCE ONE Hydromorphone HCl [Dilaudid 1 mg/ml Syringe] Meds 11/10/23 19:24 Active 0.5 mg IVP Q4HR PRN Hydromorphone HCl [Dilaudid 1 mg/ml Syringe] Meds 11/10/23 18:45 Discontinued 1 mg IVP ONCE STA Ondansetron HCl/Pf [Zofran 4 mg/2 ml] Meds 11/10/23 18:11 Discontinued 4 mg IVP ONCE STA Pantoprazole Sodium [Protonix] Meds 11/10/23 18:11 Discontinued 80 mg IVP ONCE ONE Ringers Lactated Solution [Lactated Ringers] 1,000 ml Meds 11/10/23 19:30 Active IV 250 mls/hr Sodium Chloride 0.9% [Sodium Chloride] 1,000 ml Meds 11/10/23 18:[address] ABD/PEL WO RENAL STONE PROT Stat RADS 11/10/23 18:11 Completed US ABDOMEN RT UPPER QUAD [U/S ABDOMEN RT UPPER QUAD] RADS 11/11/23 06:00 Ordered Routine Medications Generic Name Dose Route Start Last Admin Trade Name Danielle PRN Reason Stop Dose Admin Hydromorphone HCl 0.5 mg 11/10/23 19:24 11/10/23 22:33 Hydromorphone Hcl 1 Mg/Ml Syringe IVP 0.5 mg Q4HR PRN Administration moderate pain Lactated Ringer's 1,000 mls @ 250 mls/hr 11/10/23 19:30 11/10/23 21:08 Lactated Ringers IV 250 mls/hr .Q4H KERI Administration Metoclopramide HCl 5 mg 11/10/23 19:53 11/10/23 22:33 Metoclopramide Hcl 10 Mg/2 Ml IVP 5 mg Q6HR PRN Administration nausea Ondansetron HCl 4 mg 11/10/23 19:53 Ondansetron Hcl/Pf 4 Mg/2 Ml Sdv IVP Q6H PRN Nausea / Vomiting Sodium Chloride 1 syr 11/10/23 18:11 0.9% Sodium Chloride 10 Ml Disp.Syrin IVF PRN PRN To flush IV Discontinued Medications Generic Name Dose Route Start Last Admin Trade Name Danielle PRN Reason Stop Dose Admin Famotidine 20 mg 11/10/23 18:11 11/10/23 18:39 Famotidine Inj 20 Mg/2 Ml Vial IVP 11/10/23 18:12 20 mg ONCE ONE Administration Fentanyl Citrate 50 mcg 11/10/23 19:05 11/10/23 19:21 Fentanyl 50 Mcg/Ml Sdv IVP 11/10/23 19:06 50 mcg ONCE ONE Administration Hydromorphone HCl 1 mg 11/10/23 18:45 11/10/23 18:50 Hydromorphone Hcl 1 Mg/Ml Syringe IVP 11/10/23 18:46 1 mg ONCE STA Administration Sodium Chloride 1,000 mls @ 1,000 mls/hr 11/10/23 18:11 11/10/23 19:54 Sodium Chloride IV 11/10/23 19:10 Infused BOLUS STA Infusion Ondansetron HCl 4 mg 11/10/23 18:11 11/10/23 18:38 Ondansetron Hcl/Pf 4 Mg/2 Ml Sdv IVP 11/10/23 18:12 4 mg ONCE STA Administration Pantoprazole Sodium 80 mg 11/10/23 18:11 11/10/23 18:38 Pantoprazole Sodium 40 Mg Vial IVP 11/10/23 18:12 80 mg ONCE ONE Administration Vital Signs: Temp Pulse Resp BP Pulse Ox 11/10/23 17:57 97.5 F L 97 20 103/79 100 Discharge Plan Discharge Patient Disposition: ADMITTED INPATIENT Discharge Problem: Alcohol abuse Acute alcoholic pancreatitis Qualifiers: Acute pancreatitis complication: no infection or necrosis Qualified Code(s): K 85.20 - Alcohol induced acute pancreatitis without necrosis or infection Did you review [place] [employer] for ALL controlled substances?: Not Applicable ED Provider: SHIRA CAGLE Condition: Fair
[2023-11-10 18:27] LABS: BASOPHILS # (AUTO) 0.1 K/uL (0-0.2); BASOPHILS % (AUTO) 0.3 % (0.0-3.0); EOSINOPHILS # (AUTO) 0.2 K/ul (0.0-0.7); HEMATOCRIT 41.8 % (37.0-47.0); HEMOGLOBIN 14.2 g/dl (12.0-16.0); IMMATURE GRANULOCYTE # (AUTO) 0.1 (0.0-1.0); IMMATURE GRANULOCYTE % (AUTO) 0.7 % (0.0-5.0); LYMPHOCYTES # (AUTO) 2.8 K/uL (0.60-3.4); LYMPHOCYTES % (AUTO) 17.2 (10.0-50.0); MEAN CORPUSCULAR HEMOGLOBIN 31.4 pg (27.0-31.0); MEAN CORPUSCULAR VOLUME 92.5 fl (81.0-99.0); MONOCYTES # (AUTO) 1.3 K/uL (0.4-2.0); NEUTROPHILS # (AUTO) 11.8 K/ul (2.0-6.9); NEUTROPHILS % (AUTO) 72.8 % (42.2-75.2); PLATELET COUNT 374 10^3/uL (140-440); RED BLOOD COUNT 4.52 10^6/ul (4.20-5.40); WHITE BLOOD COUNT 16.26 K/ul (4.6-10.2)
[2023-11-10 18:34] LABS: BILIRUBIN,URINE Negative (NEGATIVE); CLARITY,URINE Slightly (CLEAR); COLOR,URINE Yellow (YELLOW); GLUCOSE, URINE (UA) Negative (NEGATIVE); KETONES,URINE Negative (NEGATIVE); LEUKOCYTE ESTERASE ,URINE Negative (NEGATIVE); NITRITE,URINE Negative (NEGATIVE); PH,URINE 5.5 (5-9); PROTEIN,URINE Negative (NEGATIVE); URINE, BLOOD Negative (NEGATIVE); UROBILINOGEN,URINE 0.2 (0.2)
[2023-11-10] MEDS: ZOFRAN 4 MG/2 ML IVP STA (18:38)
[2023-11-10] MEDS: PROTONIX IVP ONE (18:38)
[2023-11-10 18:39] LABS: AMORPHOUS SEDIMENT,UR 1+ (NOT PRESENT); BACTERIA,URINE TRACE (NOT PRESENT); URINE WBC, MICROSCOPIC 0-2 (0-2)
[2023-11-10] MEDS: SODIUM CHLORIDE 1,000 ML IV STA (18:39)
[2023-11-10] MEDS: PEPCID IVP ONE (18:39)
[2023-11-10 18:40] LABS: MUCUS,URINE 1+ (NOT PRESENT)
[2023-11-10 18:44] LABS: ALANINE AMINOTRANSFERASE 104.8 U/L (0-35); ALBUMIN 5.43 g/dL (3.5-5.0); ALKALINE PHOSPHATASE 113.7 U/L (38-126); ASPARTATE AMINO TRANSFERASE 124.6 U/L (14-36); BILIRUBIN,TOTAL 0.66 mg/dL (0.2-1.3); BLOOD UREA NITROGEN 8.9 mg/dL (7-17); CALCIUM 10.1 mg/dL (8.4-10.2); CARBON DIOXIDE 17.9 mmol/L (22-30.0); CHLORIDE 100.3 mmol/L (98-107); CREATININE 0.53 mg/dL (0.60-1.30); GLUCOSE 112.3 mg/dL (74-106); POTASSIUM 3.62 mmol/L (3.5-5.1); SODIUM 134.8 mmol/L (134.5-145); TOTAL PROTEIN 8.39 g/dL (6.3-8.2)
[2023-11-10] MEDS: DILAUDID 1 MG/ML SYRINGE IVP STA (18:50)
[2023-11-10 18:55] LABS: AMYLASE 883.5 U/L (30-110)
--- NOTE | 2023-11-10 19:02 | CT ---
EXAM: CT OF THE ABDOMEN AND PELVIS WITHOUT CONTRAST. TECHNIQUE: CT of the abdomen and pelvis was performed without the use of contrast. Multiplanar refo rmats were performed. HISTORY: Left lower quadrant abdominal pain and tenderness. Flank pain. COMPARISON: CT abdomen pelvis 09/01/2022. FINDINGS: Evaluation of solid organs and blood vessels is suboptimal without the benefit of contrast. Imaged lower thorax: Unremarkable. Liver: Diffuse parenchymal hypoattenuation. Gallbladder/Bile Ducts: No biliary dilation. Gallbladder is unremarkable. Spleen: Unremarkable. Pancreas: Pancreatic edema and swelling with peripancreatic fat stranding and trace fluid. No organi zed fluid collection. No pancreatic duct dilation. Adrenals: Unremarkable. Kidneys/Ureters: Unremarkable. Bowel/mesentery/peritoneum: No bowel obstruction. Normal appendix. No free air or ascites. Retroperitoneum/vessels: No aortic aneurysm. Mild scattered atherosclerotic calcifications. No adeno ángel. Pelvis: Post hysterectomy. Bladder is unremarkable. Bones/body wall: Old rib fractures. Mild scoliosis. Small fat containing umbilical hernia. IMPRESSION: Acute interstitial pancreatitis. No peripancreatic fluid collection. Hepatic steatosis. All CT scans are performed using dose optimization techniques as appropriate to the performed exam an d include at least one of the following: Automated exposure control, adjustment of the mA and/or kV according t o size, and the use of iterative reconstruction technique.
[2023-11-10] MEDS: SUBLIMAZE IVP ONE (19:21)
[2023-11-10 19:29] LABS: CHOLESTEROL 280.3 mg/dL (0-200); TRIGLYCERIDES 121.2 mg/dL (0-150)
[2023-11-10 19:35] LABS: HDL CHOLESTEROL 125.3 mg/dL (35-80)
[2023-11-10 19:40] LABS: SARS COV-2 RNA RAPID NAAT NEGATIVE (NEGATIVE)
[2023-11-10] MEDS: LACTATED RINGERS 1,000 ML IV SCH (21:08)
[2023-11-10] MEDS: REGLAN IVP PRN (22:33)
[2023-11-10] MEDS: DILAUDID 1 MG/ML SYRINGE IVP PRN (22:33)
[2023-11-11 00:17] VITALS: BMI 26.0
[2023-11-11] MEDS: ZOFRAN 4 MG/2 ML IVP PRN (02:31)
[2023-11-11 05:54] LABS: BASOPHILS % (AUTO) 0.2 % (0.0-3.0); EOSINOPHILS % (AUTO) 0.1 % (0.0-7.0); HEMATOCRIT 38.4 % (37.0-47.0); HEMOGLOBIN 12.7 g/dl (12.0-16.0); IMMATURE GRANULOCYTE # (AUTO) 0.1 (0.0-1.0); IMMATURE GRANULOCYTE % (AUTO) 0.5 % (0.0-5.0); LYMPHOCYTES # (AUTO) 0.9 K/uL (0.60-3.4); MEAN CORPUSCULAR HEMOGLOBIN 31.1 pg (27.0-31.0); MEAN CORPUSCULAR HGB CONC 33.1 (31.8-35.4); MEAN CORPUSCULAR VOLUME 93.9 fl (81.0-99.0); MONOCYTES # (AUTO) 0.7 K/uL (0.4-2.0); MONOCYTES % (AUTO) 5.6 (0-10); NEUTROPHILS # (AUTO) 10.7 K/ul (2.0-6.9); NEUTROPHILS % (AUTO) 86.6 % (42.2-75.2); PLATELET COUNT 330 10^3/uL (140-440); RDW COEFFICIENT OF VARIATION 12.1 % (11.6-14.8); RED BLOOD COUNT 4.09 10^6/ul (4.20-5.40); WHITE BLOOD COUNT 12.31 K/ul (4.6-10.2)
[2023-11-11 06:07] LABS: ALANINE AMINOTRANSFERASE 74.9 U/L (0-35); ALBUMIN 4.45 g/dL (3.5-5.0); ALKALINE PHOSPHATASE 80.6 U/L (38-126); ASPARTATE AMINO TRANSFERASE 67.6 U/L (14-36); BILIRUBIN,TOTAL 0.89 mg/dL (0.2-1.3); BLOOD UREA NITROGEN 6.1 mg/dL (7-17); CALCIUM 9.14 mg/dL (8.4-10.2); CARBON DIOXIDE 24.6 mmol/L (22-30.0); CHLORIDE 98.4 mmol/L (98-107); CREATININE 0.37 mg/dL (0.60-1.30); GLUCOSE 108.9 mg/dL (74-106); POTASSIUM 4.08 mmol/L (3.5-5.1); SODIUM 131.3 mmol/L (134.5-145); TOTAL PROTEIN 6.82 g/dL (6.3-8.2)
--- NOTE | 2023-11-11 09:35 | US ---
EXAM: ULTRASOUND ABDOMEN RIGHT UPPER QUADRANT 11/11/2023 HISTORY: Acute pancreatitis COMPARISON: 11/10/2023 FINDINGS: The liver shows no acute abnormality. Echogenic liver suggesting hepatic steatosis. Anteg rade portal flow. No visualized perihepatic ascites. Gallbladder wall 2 mm thickness. No visualized gallstones. Common bile duct 4mm diameter. Pancreatic inflammatory change and edema is better visualized on the prior abdominal CT performed . Mild pancreatic ductal dilatation up to two - 3 mm.. The right kidney measures up to 9.6 cm. No hydronephrosis. IMPRESSION: 1. Hepatic steatosis. 2. No acute process of the gallbladder. 3. Mild pancreatic ductal dilatation up to 2 - 3 mm. 4. Peripancreatic inflammatory change and edema better visualized on prior abdominal CT.
[2023-11-11] MEDS: DILAUDID 0.5 MG/0.5 ML SYRINGE IVP PRN (10:53)
--- NOTE | 2023-11-11 12:07 | PCM ---
Date of Service Date Seen by Provider: 11/11/23 Time Seen by Provider: 09:00 Admit Day/Time Admission Date: 11/10/23 Admission Time: 19:25 Reason for Admission Chief Complaint: ACUTE PANCREATITIS Hospital Provider Hospital Provider: DAVIE MORELOS PA-C, [facility] [place] Primary Care Physician Primary Care Physician: PAMELLA MORENO APRN, YVAN-C History of Present Illness History of Present Illness: Patient is a 38 year old female from home with pmhx of alcohol abuse, elevated liver enzymes, osteoporosis, who presented to ER with epigastric pain and vomiting. Patient chronically drinks 12-24 beers a day. She has not been hospitalized for pancreatitis in the past. She has been through detox twice in the past. She states she doesn't drink as much as she has in the past. She was found in ER to have lipase >37200, and CT a/p showed acute pancreatitis. Liver enzymes mildly elevated. She was given IV pain medications and started on fluids. Pt kept NPO overnight, lipase improved to 4316. She is still having abd pain and requiring iv pain meds and antiemetics. Case Discussed With Case Discussed With: Patient's case was discussed with the ER Physicians, Dr. Deras. [facility] Medical History Pneumonia J18.9 - Pneumonia, unspecified organism (ICD-10) Pneumothorax on right J93.9 - Pneumothorax, unspecified (ICD-10) Pneumothorax on left J93.9 - Pneumothorax, unspecified (ICD-10) Chronic obstructive pulmonary disease J44.9 - Chronic obstructive pulmonary disease, unspecified (ICD-10) Depression Pt aware of mental health service F32.9 - Major depressive disorder, single episode, unspecified (ICD-10) Anxiety F41.9 - Anxiety disorder, unspecified (ICD-10) Surgical History History of respiratory system surgery thoraocotomy Z98.890 - Other specified postprocedural states (ICD-10) History of surgery piladonial cyst Z98.890 - Other specified postprocedural states (ICD-10) History of tubal ligation Z98.51 - Tubal ligation status (ICD-10) Status post tonsillectomy Z90.89 - Acquired absence of other organs (ICD-10) History of oophorectomy Status post hysterectomy Z90.710 - Acquired absence of both cervix and uterus (ICD-10) History of dental surgery Z92.89 - Personal history of other medical treatment (ICD-10) Family History FATHER Cerebrovascular accident COPD (chronic obstructive pulmonary disease) Grandfather/Grandmother Aneurysm Social History Smoking and tobacco status: Current every day smoker Tobacco type: cigarettes Smoking packs per day: 1 Smoking cigarettes per day: 20.0 Tobacco: How many years used: 25 Quit status: not considering quitting Second hand smoke exposure: Yes Alcohol intake: current Alcohol intake frequency: 3 or more drinks per day A lcohol type: beer Counseling given: No Counseling provided: none Substance use type: does not use Counseling given: No Counseling provided: none Genesis/bahai: FAITH Special genesis needs: No Agree to transfusion: Yes Adopted: No Caregiver/support person: No Foster care: No Household members: spouse and children Housing: house Marital status: M Lives independently: Yes Daycare: no daycare Number of children: 3 Number of grandchildren: 0 Highest education level completed: GED or equivalent Financial difficulty paying for basics: not very hard service: No assisted: No Current occupational status: disabled Current occupational exposures/hazards: No Pets and animals: Yes (dogs, cats, bird) Leisure activites: music History of recent travel: Yes Sexually active: Yes Do you think of yourself as: straight/heterosexual Current gender identity: female Seatbelt use: always Helmet use: No Drives intoxicated or rides with intoxicated wheat combine driver: No Current diet type/program: regular Well-balanced diet: about half the time Caffeine: Yes Eating out: 1-3 times/week Reads food labels: seldom or never During the past year weight has: remained stable Water heater temperature set < 120 degrees: Yes Working smoke detector in home: Yes Fire extinguisher in home: Yes Carbon monoxide detector in home: Yes Firearms in home: Yes Firearms unloaded and locked: Yes What type of physical activity do you participate in?: walking Physical activity functional status: independent ambulation How many days of moderate to strenuous exercise, like a brisk walk, did you do in the last 7 days: 3 Allergies Allergies Allergy/AdvReac Type Severity Reaction Status Date / Time ketorolac tromethamine AdvReac Mild Unknown Verified 11/10/23 18:04 [From Toradol] codeine AdvReac Hives Verified 11/10/23 18:04 morphine AdvReac Unknown Verified 11/10/23 18:04 oxaprozin [From Daypro] AdvReac Hives Verified 11/10/23 18:04 prednisone AdvReac Anxiety Verified 11/10/23 18:04 Sulfa (Sulfonamide AdvReac Hives Verified 11/10/23 18:04 Antibiotics) Current Medications Home Medications gabapentin 100 mg capsule 100 mg PO BID PRN pain 08/17/22 [History Confirmed 11/10/23 Last Taken 03/20/23] fluticasone propionate 50 mcg/actuation nasal spray,suspension See Rx Instructions .Route .COMPLEX #16 ea 06/28/23 [Rx Confirmed 11/10/23 Last Taken Unknown] omeprazole 20 mg capsule,delayed release See Rx Instructions .Route .COMPLEX #90 caps 11/05/23 [Rx Confirmed 11/10/23 Last Taken Unknown] Home Enoxaparin Sodium (Enoxaparin Sodium 40 Mg/0.4 Ml Syr) 40 mg SUBCUT DAILY KERI Last Admin: 11/11/23 12:24 Dose: 40 mg Hydromorphone HCl (Hydromorphone 0.5 Mg/0.5 Ml Syringe) 0.5 mg IVP Q4HR PRN PRN Reason: moderate pain Last Admin: 11/11/23 10:53 Dose: 0.5 mg Lactated Ringer's (Lactated Ringers) 1,000 mls @ 250 mls/hr IV .Q4H KERI Last Admin: 11/11/23 13:30 Dose: 250 mls/hr Metoclopramide HCl (Metoclopramide Hcl 10 Mg/2 Ml) 5 mg IVP Q6HR PRN PRN Reason: nausea Last Admin: 11/11/23 05:24 Dose: 5 mg Ondansetron HCl (Ondansetron Hcl/Pf 4 Mg/2 Ml Sdv) 4 mg IVP Q6H PRN PRN Reason: Nausea / Vomiting Last Admin: 11/11/23 10:58 Dose: 4 mg Pantoprazole Sodium (Pantoprazole Sodium 40 Mg Vial) 40 mg IVP DAILY KERI Last Admin: 11/11/23 13:26 Dose: 40 mg Sodium Chloride (0.9% Sodium Chloride 10 Ml Disp.Syrin) 1 syr IVF PRN PRN PRN Reason: To flush IV Discontinued Medications Famotidine (Famotidine Inj 20 Mg/2 Ml Vial) 20 mg IVP ONCE ONE Stop: 11/10/23 18:12 Last Admin: 11/10/23 18:39 Dose: 20 mg Fentanyl Citrate (Fentanyl 50 Mcg/Ml Sdv) 50 mcg IVP ONCE ONE Stop: 11/10/23 19:06 Last Admin: 11/10/23 19:21 Dose: 50 mcg Hydromorphone HCl (Hydromorphone Hcl 1 Mg/Ml Syringe) 1 mg IVP ONCE STA Stop: 11/10/23 18:46 Last Admin: 11/10/23 18:50 Dose: 1 mg Hydromorphone HCl (Hydromorphone Hcl 1 Mg/Ml Syringe) 0.5 mg IVP Q4HR PRN PRN Reason: moderate pain Last Admin: 11/11/23 06:31 Dose: 0.5 mg Sodium Chloride (Sodium Chloride) 1,000 mls @ 1,000 mls/hr IV BOLUS STA Stop: 11/10/23 19:10 Last Infusion: 11/10/23 19:54 Dose: Infused Ondansetron HCl (Ondansetron Hcl/Pf 4 Mg/2 Ml Sdv) 4 mg IVP ONCE STA Stop: 11/10/23 18:12 Last Admin: 11/10/23 18:38 Dose: 4 mg Pantoprazole Sodium (Pantoprazole Sodium 40 Mg Vial) 80 mg IVP ONCE ONE Stop: 11/10/23 18:12 Last Admin: 11/10/23 18:38 Dose: 80 mg Opioid Naive vs. Tolerant Does Patient Take Opioids?: No Is Patient Opioid Naive?: Yes What is Opioid Naive?: *Opioid Naive implies the patient is not already taking opioids or not chronically receiving opioids on a daily basis. *PRN dosing is not "usually" associated with tolerance. *Patients are at higher risk of over-sedation and aspiration. Is Patient Opioid Tolerant?: No What is Opioid Tolerant?: *Opioid Tolerance implies less than the expected response to an opioid. *Acquired tolerance is defined by the patient taking 60mg of oral morphine daily (or equianalgesic dose of another opioid) for 1 week or more. *Often associated with chronic pain. *May take more than usual dose to achieve desired pain control. Review of Systems Constitutional: Reports Loss of appetite; Denies Fever, Fatigue or Weakness Head: Reports Normocephalic and Atraumatic Cardiovascular: Denies Chest pain, Chest Pressure or Edema Respiratory: Denies Cough or Shortness of air Gastrointestinal: Reports Nausea, Vomiting and Abdominal pain; Denies Diarrhea or Melena Genitourinary: Denies Dysuria or Frequency Dermatologic: Denies Rashes Neurological: Denies Syncope, Weakness or Problems with walking Psychiatric: Denies Depression or Anxiety Physical examination Most Recent Vital Signs: Most Recent Vital Signs Temperature 98.0 F 11/11/23 09:46 Temperature Source Temporal Artery Scan 11/11/23 09:46 Temperature Source Temporal Artery Scan 11/10/23 17:57 Pulse Rate 79 11/11/23 09:46 Respiratory Rate 14 11/11/23 09:46 Blood Pressure 139/90 11/11/23 09:46 Blood Pressure Mean 106 11/11/23 09:46 Blood Pressure Right Arm 151/93 11/10/23 21:14 Blood Pressure Location Right Arm 11/11/23 09:46 Blood Pressure Position Sitting 11/11/23 09:46 O2 Sat by Pulse Oximetry 99 11/11/23 09:46 Oxygen Delivery Method Room Air 11/11/23 10:42 Height 5 ft 6 in 11/10/23 21:14 Weight 161 lb 3 oz 11/10/23 21:14 Telemetry Type Remote Telemetry 11/11/23 07:00 Telemetry Monitoring Continues 11/11/23 07:00 Telemetry Heart Rate 81 11/11/23 07:00 EKG [place] Interval 0.12 11/11/23 07:00 EKG QRS Interval 0.05 L 11/11/23 07:00 Telemetry Strip Reading SR 11/11/23 07:00 Appearance: Positive No Apparent Distress, Alert and Oriented x3 and Other (+appears older than stated age ) Skin: Positive [place], Warm and Good Turgor HEENT: Positive Normocephalic and Atraumatic Neck: Positive Supple and Midline Trachea Chest/Lungs: Positive Clear to Auscultation Bilaterally; Negative Rales, Rhonci or Wheezes Heart: Positive RRR GI/: Positive Soft, Bowel Sounds Normal, No Distention and Tender (+epigastric ) Extremities: Negative Edema Neurological: Positive Cranial Nerves Intact, Alert, Oriented and Muscle Strength 5/5 in Upper and Lower Extremities Bilaterally Psychiatric: Positive Oriented x4, Appropriate Mood, Appropriate Affect and Intact Memory Labs This Visit Labs This Visit: Labs This Visit 11/10/23 11/10/23 11/10/23 18:25 18:28 19:03 WBC 16.26 H RBC 4.52 Hgb 14.2 Hct 41.8 MCV 92.5 MCH 31.4 H MCHC 34.0 RDW Coeff of Carlos 12.0 Plt Count 374 Immature Gran % (Auto) 0.7 Neut % (Auto) 72.8 Lymph % (Auto) 17.2 Boyd % (Auto) 8.0 Eos % (Auto) 1.0 Baso % (Auto) 0.3 Neut # (Auto) 11.8 H Lymph # (Auto) 2.8 Boyd # (Auto) 1.3 Eos # (Auto) 0.2 Baso # (Auto) 0.1 Immature Gran # (Auto) 0.1 Sodium 134.8 Potassium 3.62 Chloride 100.3 Carbon Dioxide 17.9 L Anion Gap 20.22 BUN 8.9 Creatinine 0.53 L Estimated GFR (MDRD) 128.00 BUN/Creatinine Ratio 16.79 Glucose 112.3 H Calcium 10.10 Total Bilirubin 0.66 AST 124.6 H ALT 104.8 H Alkaline Phosphatase 113.7 Total Protein 8.39 H Albumin 5.43 H Globulin 2.96 Albumin/Globulin Ratio 1.83 Triglycerides 121.2 Cholesterol 280.3 H LDL Cholesterol, Calc 131 VLDL Cholesterol 24 HDL Cholesterol 125.3 H Cholesterol/HDL Ratio 2.2 L Amylase 883.5 H* Lipase 49088.3 H Urine Color Yellow Urine Clarity Slightly Urine pH 5.5 Ur Specific Emerson 1.010 Urine Protein Negative Urine Glucose (UA) Negative Urine Ketones Negative Urine Blood Negative Urine Nitrite Negative Urine Bilirubin Negative Urine Urobilinogen 0.2 Ur Leukocyte Esterase Negative Urine Microscopic WBC 0-2 Ur Squamous Epith Cells 5-10 Amorphous Sediment 1+ Urine Bacteria Trace Urine Mucus 1+ Plasma/Serum Alcohol < 10.0 SARS CoV-2 RNA Rapid REUBEN 11/10/23 11/11/23 19:15 05:25 WBC 12.31 H RBC 4.09 L Hgb 12.7 Hct 38.4 MCV 93.9 MCH 31.1 H MCHC 33.1 RDW Coeff of Carlos 12.1 Plt Count 330 Immature Gran % (Auto) 0.5 Neut % (Auto) 86.6 H Lymph % (Auto) 7.0 L Boyd % (Auto) 5.6 Eos % (Auto) 0.1 Baso % (Auto) 0.2 Neut # (Auto) 10.7 H Lymph # (Auto) 0.9 Boyd # (Auto) 0.7 Eos # (Auto) 0.0 Baso # (Auto) 0.0 Immature Gran # (Auto) 0.1 Sodium 131.3 L Potassium 4.08 Chloride 98.4 Carbon Dioxide 24.6 Anion Gap 12.38 BUN 6.1 L Creatinine 0.37 L Estimated GFR (MDRD) 193.00 BUN/Creatinine Ratio 16.48 Glucose 108.9 H Calcium 9.14 Total Bilirubin 0.89 AST 67.6 H D ALT 74.9 H Alkaline Phosphatase 80.6 D Total Protein 6.82 Albumin 4.45 Globulin 2.37 Albumin/Globulin Ratio 1.87 Triglycerides Cholesterol LDL Cholesterol, Calc VLDL Cholesterol HDL Cholesterol Cholesterol/HDL Ratio Amylase Lipase 4316.2 H Urine Color Urine Clarity Urine pH Ur Specific Emerson Urine Protein Urine Glucose (UA) Urine Ketones Urine Blood Urine Nitrite Urine Bilirubin Urine Urobilinogen Ur Leukocyte Esterase Urine Microscopic WBC Ur Squamous Epith Cells Amorphous Sediment Urine Bacteria Urine Mucus Plasma/Serum Alcohol SARS CoV-2 RNA Rapid REUBEN Negative Imaging Imaging: EXAM: CT OF THE ABDOMEN AND PELVIS WITHOUT CONTRAST. TECHNIQUE: CT of the abdomen and pelvis was performed without the use of contrast. Multiplanar reformats were performed. HISTORY: Left lower quadrant abdominal pain and tenderness. Flank pain. COMPARISON: CT abdomen pelvis 09/01/2022. FINDINGS: Evaluation of solid organs and blood vessels is suboptimal without the benefit of contrast. Imaged lower thorax: Unremarkable. Liver: Diffuse parenchymal hypoattenuation. Gallbladder/Bile Ducts: No biliary dilation. Gallbladder is unremarkable. Spleen: Unremarkable. Pancreas: Pancreatic edema and swelling with peripancreatic fat stranding and trace fluid. No organized fluid collection. No pancreatic duct dilation. Adrenals: Unremarkable. Kidneys/Ureters: Unremarkable. Bowel/mesentery/peritoneum: No bowel obstruction. Normal appendix. No free air or ascites. Retroperitoneum/vessels: No aortic aneurysm. Mild scattered atherosclerotic calcifications. No adenopathy. Pelvis: Post hysterectomy. Bladder is unremarkable. Bones/body wall: Old rib fractures. Mild scoliosis. Small fat containing umbilical hernia. IMPRESSION: Acute interstitial pancreatitis. No peripancreatic fluid collection. Hepatic steatosis. Review Statement Review Statement: I have independently reviewed and interpreted the labs/EKGs/imaging that were ordered by the ER provider. I have reviewed all outside records that are available currently in our EMR including imaging/notes/labs from previous visits. Plan Plan: 1. Acute pancreatitis in setting of alcohol abuse - Improved. Cont fluids at 250 ml/hr, dilaudid prn for pain, zofran or reglan prn for nausea. NPO until abd pain improved, then can progress to clears. Lipase improving. US RUQ negative for acute findings. Trigs normal. 2. Transaminitis - Improved, due to alcohol abuse likely. 3. Alcohol abuse - [facility] protocol. Counseled patient on alcohol use. 4. GERD - Will give protonix IV. DVT Prophylaxis: Lovenox Time Spent: Greater than 80 minutes spent with patient, 50% of the time spent with this patient was devoted to counseling and coordination of care. [facility] minutes spent discussing advance care planning. Admit to: Obs Discussed Plan of Care with Dr. Viral Segundo. Medications Medication Orders: Medications Ordered Category Date Time Status 0.9 % Sodium Chloride [Saline Flush] Meds 11/10/23 18:11 Active 1 syr IVF PRN PRN Hydromorphone HCl [Dilaudid 0.5 mg/0.5 ml Syringe] Meds 11/11/23 07:41 Active 0.5 mg IVP Q4HR PRN Metoclopramide HCl [Reglan] Meds 11/10/23 19:53 Active 5 mg IVP Q6HR PRN Ondansetron HCl/Pf [Zofran 4 mg/2 ml] Meds 11/10/23 19:53 Active 4 mg IVP Q6H PRN Ringers Lactated Solution [Lactated Ringers] 1,000 ml Meds 11/10/23 19:30 Active IV 250 mls/hr
[2023-11-11] MEDS: LOVENOX SUBCUT SCH (12:24)
[2023-11-11] MEDS: PROTONIX IVP SCH (13:26)
[2023-11-11] MEDS: LACTATED RINGERS 1,000 ML IV SCH (15:37)
[2023-11-12 06:03] LABS: BASOPHILS % (AUTO) 0.2 % (0.0-3.0); EOSINOPHILS # (AUTO) 0.1 K/ul (0.0-0.7); EOSINOPHILS % (AUTO) 0.6 % (0.0-7.0); HEMATOCRIT 37.6 % (37.0-47.0); HEMOGLOBIN 12.6 g/dl (12.0-16.0); IMMATURE GRANULOCYTE # (AUTO) 0.1 (0.0-1.0); IMMATURE GRANULOCYTE % (AUTO) 0.5 % (0.0-5.0); LYMPHOCYTES # (AUTO) 1.1 K/uL (0.60-3.4); LYMPHOCYTES % (AUTO) 9.1 (10.0-50.0); MEAN CORPUSCULAR HEMOGLOBIN 31.2 pg (27.0-31.0); MEAN CORPUSCULAR HGB CONC 33.5 (31.8-35.4); MEAN CORPUSCULAR VOLUME 93.1 fl (81.0-99.0); MONOCYTES # (AUTO) 0.9 K/uL (0.4-2.0); MONOCYTES % (AUTO) 6.9 (0-10); NEUTROPHILS # (AUTO) 10.2 K/ul (2.0-6.9); NEUTROPHILS % (AUTO) 82.7 % (42.2-75.2); PLATELET COUNT 275 10^3/uL (140-440); RDW COEFFICIENT OF VARIATION 12.5 % (11.6-14.8); RED BLOOD COUNT 4.04 10^6/ul (4.20-5.40); WHITE BLOOD COUNT 12.34 K/ul (4.6-10.2)
[2023-11-12 06:17] LABS: ALANINE AMINOTRANSFERASE 43.4 U/L (0-35); ALBUMIN 3.81 g/dL (3.5-5.0); ALKALINE PHOSPHATASE 65.5 U/L (38-126); BILIRUBIN,TOTAL 0.83 mg/dL (0.2-1.3); BLOOD UREA NITROGEN 2.4 mg/dL (7-17); CALCIUM 8.7 mg/dL (8.4-10.2); CARBON DIOXIDE 29.8 mmol/L (22-30.0); CHLORIDE 96.7 mmol/L (98-107); CREATININE 0.42 mg/dL (0.60-1.30); GLUCOSE 82.1 mg/dL (74-106); POTASSIUM 3.42 mmol/L (3.5-5.1); SODIUM 131.5 mmol/L (134.5-145); TOTAL PROTEIN 6.24 g/dL (6.3-8.2)
[2023-11-12 06:26] LABS: LIPASE 3369.6 U/L (23-300)
--- NOTE | 2023-11-12 11:04 | PCM.PROG ---
Date/Time Seen Date Seen by Provider: 11/12/23 Time Seen by Provider: 08:40 Provider Provider: DAVIE MORELOS PA-C, [facility] Chief Complaint Chief Complaint: ACUTE PANCREATITIS Subjective Subjective: Patient is feeling better but still requiring IV pain medication. Lipase improved to 3300. Pt has been able to tolerate some clears. Objective Appearance: Positive No Apparent Distress and Alert and Oriented x3 Chest/Lungs: Positive Clear to Auscultation Bilaterally; Negative Rales, Rhonci or Wheezes Heart: Positive RRR GI/: Positive Soft, Bowel Sounds Normal, No Distention and Tender (+epigastric, left sided ) Neurological: Positive Cranial Nerves Intact, Alert, Oriented and Muscle Strength 5/5 in Upper and Lower Extremities Bilaterally Vital Signs Vital Signs: Vital Signs: Last 24 Hours 11/11/23 12:00 11/11/23 13:00 11/11/23 13:00 Temperature Temperature Source Pulse Rate Pulse Rate [Apical] Respiratory Rate Blood Pressure Blood Pressure Mean Blood Pressure Location Blood Pressure Position O2 Sat by Pulse Oximetry Oxygen Delivery Method Room Air Room Air Telemetry Type Remote Telemetry Telemetry Monitoring Continues Telemetry Heart Rate 96 EKG NE Interval 0.10 L EKG QRS Interval 0.07 Telemetry Strip Reading SR 11/11/23 14:00 11/11/23 14:00 11/11/23 15:00 Temperature 98.9 F Temperature Source Temporal Artery Scan Pulse Rate 83 Pulse Rate [Apical] Respiratory Rate 14 Blood Pressure 133/85 Blood Pressure Mean 101 Blood Pressure Location Right Arm Blood Pressure Position O2 Sat by Pulse Oximetry 99 Oxygen Delivery Method Room Air Room Air Room Air Telemetry Type Telemetry Monitoring Telemetry Heart Rate EKG NE Interval EKG QRS Interval Telemetry Strip Reading 11/11/23 15:54 11/11/23 16:48 11/11/23 18:00 Temperature Temperature Source Pulse Rate Pulse Rate [Apical] Respiratory Rate Blood Pressure Blood Pressure Mean Blood Pressure Location Blood Pressure Position O2 Sat by Pulse Oximetry Oxygen Delivery Method Room Air Room Air Room Air Telemetry Type Telemetry Monitoring Telemetry Heart Rate EKG NE Interval EKG QRS Interval Telemetry Strip Reading 11/11/23 18:00 11/11/23 19:00 11/11/23 19:30 Temperature 98.1 F Temperature Source Temporal Artery Scan Pulse Rate 77 Pulse Rate [Apical] Respiratory Rate 16 Blood Pressure 133/92 H Blood Pressure Mean 105 Blood Pressure Location Right Arm Blood Pressure Position Sitting O2 Sat by Pulse Oximetry 100 Oxygen Delivery Method Room Air Room Air Telemetry Type Remote Telemetry Telemetry Monitoring Continues Telemetry Heart Rate 82 EKG NE Interval 0.13 EKG QRS Interval 0.08 Telemetry Strip Reading SR 11/11/23 20:00 11/11/23 20:00 11/11/23 21:00 Temperature 98.2 F Temperature Source Temporal Artery Scan Pulse Rate 89 Pulse Rate [Apical] Respiratory Rate 18 16 Blood Pressure 126/87 Blood Pressure Mean 100 Blood Pressure Location Right Arm Blood Pressure Position Supine O2 Sat by Pulse Oximetry 98 Oxygen Delivery Method Room Air Room Air Room Air Telemetry Type Telemetry Monitoring Telemetry Heart Rate EKG NE Interval EKG QRS Interval Telemetry Strip Reading 11/11/23 21:00 11/11/23 22:00 11/11/23 23:00 Temperature Temperature Source Pulse Rate Pulse Rate [Apical] Respiratory Rate Blood Pressure Blood Pressure Mean Blood Pressure Location Blood Pressure Position O2 Sat by Pulse Oximetry Oxygen Delivery Method Room Air Room Air Room Air Telemetry Type Telemetry Monitoring Telemetry Heart Rate EKG NE Interval EKG QRS Interval Telemetry Strip Reading 11/12/23 00:00 11/12/23 00:00 11/12/23 00:56 Temperature 97.3 F L Temperature Source Pulse Rate 88 Pulse Rate [Apical] Respiratory Rate 16 Blood Pressure 134/74 Blood Pressure Mean Blood Pressure Location Blood Pressure Position O2 Sat by Pulse Oximetry Oxygen Delivery Method Room Air Room Air Telemetry Type Telemetry Monitoring Telemetry Heart Rate EKG NE Interval EKG QRS Interval Telemetry Strip Reading 11/12/23 00:56 11/12/23 02:00 11/12/23 03:00 Temperature Temperature Source Pulse Rate Pulse Rate [Apical] Respiratory Rate Blood Pressure Blood Pressure Mean Blood Pressure Location Blood Pressure Position O2 Sat by Pulse Oximetry Oxygen Delivery Method Room Air Room Air Telemetry Type Remote Telemetry Telemetry Monitoring Continues Telemetry Heart Rate 88 EKG NE Interval 0.13 EKG QRS Interval 0.06 Telemetry Strip Reading sinus rhythm 11/12/23 03:53 11/12/23 05:00 11/12/23 05:33 Temperature 96.9 F L Temperature Source Temporal Artery Scan Pulse Rate 78 Pulse Rate [Apical] Respiratory Rate 16 Blood Pressure 134/74 Blood Pressure Mean 94 Blood Pressure Location Right Arm Blood Pressure Position Supine O2 Sat by Pulse Oximetry 98 Oxygen Delivery Method Room Air Room Air Room Air Telemetry Type Telemetry Monitoring Telemetry Heart Rate EKG NE Interval EKG QRS Interval Telemetry Strip Reading 11/12/23 06:00 11/12/23 06:00 11/12/23 07:00 Temperature 97.6 F Temperature Source Pulse Rate 82 Pulse Rate [Apical] Respiratory Rate 16 Blood Pressure 134/76 Blood Pressure Mean Blood Pressure Location Blood Pressure Position O2 Sat by Pulse Oximetry Oxygen Delivery Method Room Air Room Air Telemetry Type Telemetry Monitoring Telemetry Heart Rate EKG NE Interval EKG QRS Interval Telemetry Strip Reading 11/12/23 07:00 11/12/23 08:00 11/12/23 08:00 Temperature Temperature Source Pulse Rate Pulse Rate [Apical] 92 Respiratory Rate 16 Blood Pressure Blood Pressure Mean Blood Pressure Location Blood Pressure Position O2 Sat by Pulse Oximetry Oxygen Delivery Method Room Air Room Air Telemetry Type Remote Telemetry Telemetry Monitoring Continues Telemetry Heart Rate 94 EKG NE Interval 0.13 EKG QRS Interval 0.08 Telemetry Strip Reading NSR 11/12/23 08:58 11/12/23 09:42 11/12/23 09:55 Temperature 98.1 F Temperature Source Tympanic Pulse Rate 80 Pulse Rate [Apical] Respiratory Rate 18 Blood Pressure 131/90 Blood Pressure Mean 103 Blood Pressure Location Right Arm Blood Pressure Position Sitting O2 Sat by Pulse Oximetry 97 Oxygen Delivery Method Room Air Room Air Room Air Telemetry Type Telemetry Monitoring Telemetry Heart Rate EKG NE Interval EKG QRS Interval Telemetry Strip Reading 11/12/23 10:52 Temperature Temperature Source Pulse Rate Pulse Rate [Apical] Respiratory Rate Blood Pressure Blood Pressure Mean Blood Pressure Location Blood Pressure Position O2 Sat by Pulse Oximetry Oxygen Delivery Method Room Air Telemetry Type Telemetry Monitoring Telemetry Heart Rate EKG NE Interval EKG QRS Interval Telemetry Strip Reading Lab Results Lab Results: Lab Results: Last 24 Hours 11/12/23 05:54 WBC 12.34 H RBC 4.04 L Hgb 12.6 Hct 37.6 MCV 93.1 MCH 31.2 H MCHC 33.5 RDW Coeff of Carlos 12.5 Plt Count 275 Immature Gran % (Auto) 0.5 Neut % (Auto) 82.7 H Lymph % (Auto) 9.1 L Scott % (Auto) 6.9 Eos % (Auto) 0.6 Baso % (Auto) 0.2 Neut # (Auto) 10.2 H Lymph # (Auto) 1.1 Scott # (Auto) 0.9 Eos # (Auto) 0.1 Baso # (Auto) 0.0 Immature Gran # (Auto) 0.1 Sodium 131.5 L Potassium 3.42 L Chloride 96.7 L Carbon Dioxide 29.8 Anion Gap 8.42 BUN 2.4 L Creatinine 0.42 L Estimated GFR (MDRD) 167.00 BUN/Creatinine Ratio 5.71 Glucose 82.1 Calcium 8.70 Total Bilirubin 0.83 AST 36.0 D ALT 43.4 H D Alkaline Phosphatase 65.5 Total Protein 6.24 L Albumin 3.81 Globulin 2.43 Albumin/Globulin Ratio 1.56 Lipase 3369.6 H Additional Comments Additional Comments: I have independently reviewed and interpreted the labs/EKGs/imaging ordered during this hospital stay. I have reviewed outside records that are available in our EMR that pertain to medical stay including imaging/notes/labs from previous visits. Active Medications Active Medications: Medications Generic Name Dose Route Start Last Admin Trade Name Freq PRN Reason Stop Dose Admin Enoxaparin Sodium 40 mg 11/11/23 12:10 11/12/23 08:36 Enoxaparin Sodium 40 Mg/0.4 Ml Syr SUBCUT 40 mg DAILY KERI Administration Hydromorphone HCl 0.5 mg 11/11/23 07:41 11/12/23 08:29 Hydromorphone 0.5 Mg/0.5 Ml Syringe IVP 0.5 mg Q4HR PRN Administration moderate pain Lactated Ringer's 1,000 mls @ 200 mls/hr 11/11/23 15:00 11/12/23 09:37 Lactated Ringers IV 200 mls/hr .Q5H KERI Administration Metoclopramide HCl 5 mg 11/10/23 19:53 11/11/23 05:24 Metoclopramide Hcl 10 Mg/2 Ml IVP 5 mg Q6HR PRN Administration nausea Ondansetron HCl 4 mg 11/10/23 19:53 11/12/23 04:23 Ondansetron Hcl/Pf 4 Mg/2 Ml Sdv IVP 4 mg Q6H PRN Administration Nausea / Vomiting Pantoprazole Sodium 40 mg 11/11/23 12:15 11/12/23 08:35 Pantoprazole Sodium 40 Mg Vial IVP 40 mg DAILY KERI Administration Sodium Chloride 1 syr 11/10/23 18:11 0.9% Sodium Chloride 10 Ml Disp.Syrin IVF PRN PRN To flush IV Plan Plan: 1. Acute pancreatitis in setting of alcohol abuse - Improved. Cont fluids at 200 ml/hr, dilaudid prn for pain, zofran or reglan prn for nausea. May have clears. Lipase improving. US RUQ negative for acute findings. Trigs normal. 2. Transaminitis - Improved, due to alcohol abuse likely. 3. Alcohol abuse - [facility] protocol. Counseled patient on alcohol use. 4. GERD - Will give protonix IV. DVT Prophylaxis: Lovenox Dispo: Potential dc tomorrow Review Statement Review Statement: I have personally discussed and reviewed the patient's visit/currently labs/imaging/decision making with Dr. Segundo, my supervising attending. Greater that 50 minutes spent with patient, 50% of the time spent with this patient was devoted to counseling and coordination of care.
[2023-11-12] MEDS: K-DUR PO ONE (11:20)
[2023-11-13 05:17] LABS: BASOPHILS % (AUTO) 0.4 % (0.0-3.0); EOSINOPHILS # (AUTO) 0.1 K/ul (0.0-0.7); EOSINOPHILS % (AUTO) 1.1 % (0.0-7.0); HEMATOCRIT 34.3 % (37.0-47.0); HEMOGLOBIN 11.4 g/dl (12.0-16.0); IMMATURE GRANULOCYTE # (AUTO) 0.1 (0.0-1.0); IMMATURE GRANULOCYTE % (AUTO) 1.1 % (0.0-5.0); LYMPHOCYTES # (AUTO) 1.1 K/uL (0.60-3.4); LYMPHOCYTES % (AUTO) 9.7 (10.0-50.0); MEAN CORPUSCULAR HEMOGLOBIN 30.9 pg (27.0-31.0); MEAN CORPUSCULAR HGB CONC 33.2 (31.8-35.4); MONOCYTES # (AUTO) 1.1 K/uL (0.4-2.0); MONOCYTES % (AUTO) 10.1 (0-10); NEUTROPHILS # (AUTO) 8.7 K/ul (2.0-6.9); NEUTROPHILS % (AUTO) 77.6 % (42.2-75.2); PLATELET COUNT 247 10^3/uL (140-440); RDW COEFFICIENT OF VARIATION 12.3 % (11.6-14.8); RED BLOOD COUNT 3.69 10^6/ul (4.20-5.40); WHITE BLOOD COUNT 11.16 K/ul (4.6-10.2)
[2023-11-13 05:38] LABS: ALANINE AMINOTRANSFERASE 28.5 U/L (0-35); ALBUMIN 3.05 g/dL (3.5-5.0); ALKALINE PHOSPHATASE 63.7 U/L (38-126); ASPARTATE AMINO TRANSFERASE 30.2 U/L (14-36); BILIRUBIN,TOTAL 0.87 mg/dL (0.2-1.3); BLOOD UREA NITROGEN 2.1 mg/dL (7-17); CALCIUM 8.21 mg/dL (8.4-10.2); CARBON DIOXIDE 24.5 mmol/L (22-30.0); CHLORIDE 98.1 mmol/L (98-107); CREATININE 0.43 mg/dL (0.60-1.30); GLUCOSE 79.6 mg/dL (74-106); LIPASE 776.2 U/L (23-300); POTASSIUM 3.53 mmol/L (3.5-5.1); SODIUM 127.8 mmol/L (134.5-145); TOTAL PROTEIN 5.35 g/dL (6.3-8.2)
--- NOTE | 2023-11-13 13:02 | PCM.PROG ---
Date/Time Seen Date Seen by Provider: 11/13/23 Time Seen by Provider: 09:15 Provider Provider[facility] Chief Complaint Chief Complaint: ACUTE PANCREATITIS Subjective Subjective: Patient sitting in chair today. She is still having epigastric/left sided pain. Improved overall but requiring IV pain meds. Lipase improving. Objective Appearance: Positive No Apparent Distress and Alert and Oriented x3 Chest/Lungs: Positive Clear to Auscultation Bilaterally; Negative Rales, Rhonci or Wheezes Heart: Positive RRR GI/: Positive Soft, Bowel Sounds Normal, No Distention and Tender (+epigastri c, left sided ) Neurological: Positive Cranial Nerves Intact, Alert, Oriented and Muscle Strength 5/5 in Upper and Lower Extremities Bilaterally Vital Signs Vital Signs: Vital Signs: Last 24 Hours 11/12/23 13:41 11/12/23 13:41 11/12/23 15:00 Temperature 98.8 F Temperature Source Tympanic Pulse Rate 91 Pulse Rate [Apical] Respiratory Rate 18 Blood Pressure 137/92 H Blood Pressure Mean 107 Blood Pressure Location Right Arm Blood Pressure Position Sitting O2 Sat by Pulse Oximetry 94 L Oxygen Delivery Method Room Air Room Air Room Air Telemetry Type Telemetry Monitoring Telemetry Heart Rate EKG GA Interval EKG QRS Interval Telemetry Strip Reading 11/12/23 16:00 11/12/23 16:52 11/12/23 18:00 Temperature Temperature Source Pulse Rate Pulse Rate [Apical] Respiratory Rate Blood Pressure Blood Pressure Mean Blood Pressure Location Blood Pressure Position O2 Sat by Pulse Oximetry Oxygen Delivery Method Room Air Room Air Room Air Telemetry Type Telemetry Monitoring Telemetry Heart Rate EKG GA Interval EKG QRS Interval Telemetry Strip Reading 11/12/23 18:00 11/12/23 19:00 11/12/23 19:00 Temperature 99.0 F Temperature Source Tympanic Pulse Rate 92 Pulse Rate [Apical] Respiratory Rate 18 Blood Pressure 139/94 H Blood Pressure Mean 109 Blood Pressure Location Right Arm Blood Pressure Position Sitting O2 Sat by Pulse Oximetry 95 Oxygen Delivery Method Room Air Room Air Telemetry Type Remote Telemetry Telemetry Monitoring Continues Telemetry Heart Rate 93 EKG GA Interval 0.14 EKG QRS Interval 0.08 Telemetry Strip Reading NSR 11/12/23 19:51 11/12/23 20:00 11/12/23 21:00 Temperature Temperature Source Pulse Rate Pulse Rate [Apical] Respiratory Rate 16 Blood Pressure Blood Pressure Mean Blood Pressure Location Blood Pressure Position O2 Sat by Pulse Oximetry Oxygen Delivery Method Room Air Room Air Room Air Telemetry Type Telemetry Monitoring Telemetry Heart Rate EKG GA Interval EKG QRS Interval Telemetry Strip Reading 11/12/23 21:28 11/12/23 22:00 11/12/23 23:00 Temperature 99.6 F Temperature Source Temporal Artery Scan Pulse Rate 106 H Pulse Rate [Apical] Respiratory Rate 18 Blood Pressure 144/88 H Blood Pressure Mean 106 Blood Pressure Location Right Arm Blood Pressure Position Sitting O2 Sat by Pulse Oximetry 93 L Oxygen Delivery Method Room Air Room Air Room Air Telemetry Type Telemetry Monitoring Telemetry Heart Rate EKG GA Interval EKG QRS Interval Telemetry Strip Reading 11/13/23 00:00 11/13/23 00:00 11/13/23 01:00 Temperature 98.6 F Temperature Source Pulse Rate 94 Pulse Rate [Apical] Respiratory Rate 16 Blood Pressure 132/94 H Blood Pressure Mean Blood Pressure Location Blood Pressure Position O2 Sat by Pulse Oximetry Oxygen Delivery Method Room Air Room Air Telemetry Type Telemetry Monitoring Telemetry Heart Rate EKG GA Interval EKG QRS Interval Telemetry Strip Reading 11/13/23 01:00 11/13/23 02:00 11/13/23 03:00 Temperature Temperature Source Pulse Rate Pulse Rate [Apical] Respiratory Rate Blood Pressure Blood Pressure Mean Blood Pressure Location Blood Pressure Position O2 Sat by Pulse Oximetry Oxygen Delivery Method Room Air Room Air Telemetry Type Remote Telemetry Telemetry Monitoring Continues Telemetry Heart Rate 90 EKG GA Interval 0.11 L EKG QRS Interval 0.09 Telemetry Strip Reading 11/13/23 04:00 11/13/23 05:00 11/13/23 05:18 Temperature 98.9 F Temperature Source Temporal Artery Scan Pulse Rate 100 Pulse Rate [Apical] Respiratory Rate 20 Blood Pressure 122/82 Blood Pressure Mean 95 Blood Pressure Location Right Arm Blood Pressure Position Supine O2 Sat by Pulse Oximetry 93 L Oxygen Delivery Method Room Air Room Air Room Air Telemetry Type Telemetry Monitoring Telemetry Heart Rate EKG GA Interval EKG QRS Interval Telemetry Strip Reading 11/13/23 06:00 11/13/23 06:00 11/13/23 07:00 Temperature 98.9 F Temperature Source Pulse Rate 100 Pulse Rate [Apical] Respiratory Rate 20 Blood Pressure 122/82 Blood Pressure Mean Blood Pressure Location Blood Pressure Position O2 Sat by Pulse Oximetry Oxygen Delivery Method Room Air Room Air Telemetry Type Telemetry Monitoring Telemetry Heart Rate EKG GA Interval EKG QRS Interval Telemetry Strip Reading 11/13/23 07:00 11/13/23 08:00 11/13/23 08:00 Temperature Temperature Source Pulse Rate Pulse Rate [Apical] 98 Respiratory Rate 18 Blood Pressure Blood Pressure Mean Blood Pressure Location Blood Pressure Position O2 Sat by Pulse Oximetry Oxygen Delivery Method Room Air Room Air Telemetry Type Remote Telemetry Telemetry Monitoring Continues Telemetry Heart Rate 94 EKG GA Interval 0.12 EKG QRS Interval 0.06 Telemetry Strip Reading SR 11/13/23 09:00 11/13/23 10:00 11/13/23 10:00 Temperature 99 F Temperature Source Temporal Artery Scan Pulse Rate 98 Pulse Rate [Apical] Respiratory Rate 18 Blood Pressure 140/88 Blood Pressure Mean 105 Blood Pressure Location Right Arm Blood Pressure Position Sitting O2 Sat by Pulse Oximetry 95 Oxygen Delivery Method Room Air Room Air Room Air Telemetry Type Telemetry Monitoring Telemetry Heart Rate EKG GA Interval EKG QRS Interval Telemetry Strip Reading 11/13/23 11:00 Temperature Temperature Source Pulse Rate Pulse Rate [Apical] Respiratory Rate Blood Pressure Blood Pressure Mean Blood Pressure Location Blood Pressure Position O2 Sat by Pulse Oximetry Oxygen Delivery Method Room Air Telemetry Type Telemetry Monitoring Telemetry Heart Rate EKG GA Interval EKG QRS Interval Telemetry Strip Reading Lab Results Lab Results: Lab Results: Last 24 Hours 11/13/23 04:55 WBC 11.16 H RBC 3.69 L Hgb 11.4 L Hct 34.3 L MCV 93.0 MCH 30.9 MCHC 33.2 RDW Coeff of Carlos 12.3 Plt Count 247 Immature Gran % (Auto) 1.1 Neut % (Auto) 77.6 H Lymph % (Auto) 9.7 L Kings % (Auto) 10.1 H Eos % (Auto) 1.1 Baso % (Auto) 0.4 Neut # (Auto) 8.7 H Lymph # (Auto) 1.1 Kings # (Auto) 1.1 Eos # (Auto) 0.1 Baso # (Auto) 0.0 Immature Gran # (Auto) 0.1 Sodium 127.8 L Potassium 3.53 Chloride 98.1 Carbon Dioxide 24.5 Anion Gap 8.73 BUN 2.1 L Creatinine 0.43 L Estimated GFR (MDRD) 163.00 BUN/Creatinine Ratio 4.88 Glucose 79.6 Calcium 8.21 L Total Bilirubin 0.87 AST 30.2 ALT 28.5 Alkaline Phosphatase 63.7 Total Protein 5.35 L Albumin 3.05 L Globulin 2.30 Albumin/Globulin Ratio 1.32 Lipase 776.2 H Additional Comments Additional Comments: I have independently reviewed and interpreted the labs/EKGs/imaging ordered during this hospital stay. I have reviewed outside records that are available in our EMR that pertain to medical stay including imaging/notes/labs from previous visits. Active Medications Active Medications: Medications Generic Name Dose Route Start Last Admin Trade Name Freq PRN Reason Stop Dose Admin Enoxaparin Sodium 40 mg 11/11/23 12:10 11/13/23 08:42 Enoxaparin Sodium 40 Mg/0.4 Ml Syr SUBCUT 40 mg DAILY KERI Administration Hydromorphone HCl 0.5 mg 11/11/23 07:41 11/13/23 08:42 Hydromorphone 0.5 Mg/0.5 Ml Syringe IVP 0.5 mg Q4HR PRN Administration moderate pain Lactated Ringer's 1,000 mls @ 200 mls/hr 11/11/23 15:00 11/13/23 11:19 Lactated Ringers IV 200 mls/hr .Q5H KERI Administration Metoclopramide HCl 5 mg 11/10/23 19:53 11/11/23 05:24 Metoclopramide Hcl 10 Mg/2 Ml IVP 5 mg Q6HR PRN Administration nausea Ondansetron HCl 4 mg 11/10/23 19:53 11/12/23 04:23 Ondansetron Hcl/Pf 4 Mg/2 Ml Sdv IVP 4 mg Q6H PRN Administration Nausea / Vomiting Pantoprazole Sodium 40 mg 11/11/23 12:15 11/13/23 08:42 Pantoprazole Sodium 40 Mg Vial IVP 40 mg DAILY KERI Administration Sodium Chloride 1 syr 11/10/23 18:11 0.9% Sodium Chloride 10 Ml Disp.Syrin IVF PRN PRN To flush IV Plan Plan: 1. Acute pancreatitis in setting of alcohol abuse - Improved. Decrease fluids to 100 ml/hr, dilaudid prn for pain but will space it out, zofran or reglan prn for nausea. May have clears. Lipase improving. US RUQ negative for acute findings. Trigs normal. 2. Transaminitis - Improved, due to alcohol abuse likely. 3. Alcohol abuse - [facility] protocol. Counseled patient on alcohol use. 4. GERD - Will give protonix IV. DVT Prophylaxis: Lovenox Dispo: Potential dc tomorrow Review Statement Review Statement: I have personally discussed and reviewed the patient's visit/currently labs/imaging/decision making with Dr. Segundo, my supervising attending. Greater that 50 minutes spent with patient, 50% of the time spent with this patient was devoted to counseling and coordination of care.
[2023-11-13] MEDS: SODIUM CHLORIDE 1,000 ML IV SCH (13:35)
[2023-11-13] MEDS: DILAUDID 0.5 MG/0.5 ML SYRINGE IVP PRN (15:40)
[2023-11-14 05:13] VITALS: PULSE 96
[2023-11-14 05:28] LABS: BASOPHILS % (AUTO) 0.3 % (0.0-3.0); EOSINOPHILS # (AUTO) 0.2 K/ul (0.0-0.7); EOSINOPHILS % (AUTO) 1.5 % (0.0-7.0); HEMATOCRIT 30.1 % (37.0-47.0); HEMOGLOBIN 10.2 g/dl (12.0-16.0); IMMATURE GRANULOCYTE # (AUTO) 0.1 (0.0-1.0); IMMATURE GRANULOCYTE % (AUTO) 0.7 % (0.0-5.0); LYMPHOCYTES % (AUTO) 8.8 (10.0-50.0); MEAN CORPUSCULAR HEMOGLOBIN 31.6 pg (27.0-31.0); MEAN CORPUSCULAR HGB CONC 33.9 (31.8-35.4); MEAN CORPUSCULAR VOLUME 93.2 fl (81.0-99.0); MONOCYTES # (AUTO) 1.4 K/uL (0.4-2.0); MONOCYTES % (AUTO) 12.7 (0-10); NEUTROPHILS # (AUTO) 8.5 K/ul (2.0-6.9); PLATELET COUNT 253 10^3/uL (140-440); RED BLOOD COUNT 3.23 10^6/ul (4.20-5.40); WHITE BLOOD COUNT 11.22 K/ul (4.6-10.2)
[2023-11-14 05:33] LABS: ALANINE AMINOTRANSFERASE 23.6 U/L (0-35); ALBUMIN 3.02 g/dL (3.5-5.0); ALKALINE PHOSPHATASE 63.5 U/L (38-126); BILIRUBIN,TOTAL 0.9 mg/dL (0.2-1.3); BLOOD UREA NITROGEN 2.1 mg/dL (7-17); CALCIUM 7.86 mg/dL (8.4-10.2); CHLORIDE 100.4 mmol/L (98-107); CREATININE 0.39 mg/dL (0.60-1.30); GLUCOSE 92.1 mg/dL (74-106); LIPASE 360.9 U/L (23-300); POTASSIUM 3.16 mmol/L (3.5-5.1); TOTAL PROTEIN 5.31 g/dL (6.3-8.2)
[2023-11-14] MEDS: K-DUR PO ONE (06:52)
[2023-11-14 10:02] VITALS: BP 148/96; RESP 18; TEMP 98.3
--- NOTE | 2023-11-14 10:25 | DCSUM ---
Admission Date Admission Date: 11/12/23 Discharge Date Discharge Date: 11/14/23 Admission Diagnosis Admission Diagnosis: Pancreatitis Discharge Diagnosis Discharge Diagnosis: Pancreatitis Hospital Provider Hospital Provider: Ivan ORELLANA, [facility] Primary Care Physician Primary Care Physician: PAMELLA MORENO APRN, FNP-C Consulting Physician Consulting Physician: none Summary of History and Physical Summary of History and Physical: Patient initially admitted for pancreatitis secondary to ETOH consumption. Fluid repletion started in ED initially and patient was admitted for continued pain control and fluid repletion. Throughout admission patient has good overall clinical improvement and tolerance of treatment. Patient initially NPO; however, patient current on regular diet and tolerating well without increased symptoms. Patient drinking well. No nausea or vomiting. Patient has had no s/s of DT or withdrawals while admitted. Patient reports pain has improved significantly and is only intermittent and mild. Spoke with patient regarding discharge home and she is agreeable. I advised the patient to follow up with PCP within 72hrs for continued monitoring. I advised patient to return to ED if having new or worsening symptoms. Patient advised to abstain from alcohol and drink plenty of clear fluids. Patient advised to seek outpatient alcohol support if needed. Patient verbalized understanding and agreement with discharge edication. Hospital Course Appearance: Pleasant HEENT: MMM, Supple and No JVD CVS: No Murmur, No Rubs, No Gallop and No JVD Abdomen: Soft, Non-Tender and No Distention Respiratory: No Crackles Extremities: No Edema and No Calf Tenderness Vital Signs: Most Recent Vital Signs Temperature 98.3 F 11/14/23 10:00 Temperature Source Temporal Artery Scan 11/14/23 10:00 Temperature Source Temporal Artery Scan 11/10/23 17:57 Pulse Rate 96 11/14/23 10:00 Respiratory Rate 18 11/14/23 10:00 Blood Pressure 148/96 H 11/14/23 10:00 Blood Pressure Mean 113 11/14/23 10:00 Blood Pressure Right Arm 151/93 11/10/23 21:14 Blood Pressure Location Right Arm 11/14/23 10:00 Blood Pressure Position Sitting 11/14/23 10:00 O2 Sat by Pulse Oximetry 94 L 11/14/23 10:00 Oxygen Delivery Method Room Air 11/14/23 10:00 Height 5 ft 6 in 11/10/23 21:14 Weight 161 lb 3 oz 11/10/23 21:14 Telemetry Type Remote Telemetry 11/14/23 01:00 Telemetry Monitoring Continues 11/14/23 01:00 Telemetry Heart Rate 99 11/14/23 01:00 EKG OK Interval 0.12 11/14/23 01:00 EKG QRS Interval 0.08 11/14/23 01:00 Telemetry Strip Reading SR 11/14/23 01:00 Lab Results Last 24 Hours: 11/14/23 04:57 WBC 11.22 H RBC 3.23 L Hgb 10.2 L Hct 30.1 L MCV 93.2 MCH 31.6 H MCHC 33.9 RDW Coeff of Carlos 12.0 Plt Count 253 Immature Gran % (Auto) 0.7 Neut % (Auto) 76.0 H Lymph % (Auto) 8.8 L Dade % (Auto) 12.7 H Eos % (Auto) 1.5 Baso % (Auto) 0.3 Neut # (Auto) 8.5 H Lymph # (Auto) 1.0 Dade # (Auto) 1.4 Eos # (Auto) 0.2 Baso # (Auto) 0.0 Immature Gran # (Auto) 0.1 Sodium 130.0 L Potassium 3.16 L Chloride 100.4 Carbon Dioxide 25.0 Anion Gap 7.76 BUN 2.1 L Creatinine 0.39 L Estimated GFR (MDRD) 182.00 BUN/Creatinine Ratio 5.38 Glucose 92.1 Calcium 7.86 L Total Bilirubin 0.90 AST 30.0 ALT 23.6 Alkaline Phosphatase 63.5 Total Protein 5.31 L Albumin 3.02 L Globulin 2.29 Albumin/Globulin Ratio 1.31 Lipase 360.9 H Discharge Instructions Discharge Planning: Discharge Planning > 40 minutes If patient is discharged with left ventricular systolic dysfunction: No Discharged with a beta gadiel? [] If no, why not? [] Discharged with an horacio/arb? [] If no, why not? [] Discharge Medications: Medications at Discharge (Home Meds & RX) gabapentin 100 mg capsule 100 mg PO BID PRN pain 08/17/22 fluticasone propionate 50 mcg/actuation nasal spray,suspension See Rx Instructions .Route .COMPLEX #16 ea 06/28/23 omeprazole 20 mg capsule,delayed release See Rx Instructions .Route .COMPLEX #90 caps 11/05/23 Discharge Plan Discharge Discharge Orders: Discharge Patient (ONCE); Ordered 11/14/23 Ordered By: IVAN DE SANTIAGO Activity Restrictions/Additional Instructions: Follow up with PCP within the next 72hrs Return to the ED if having new or wrosening symptoms Continued bland diet and advance as tolerated over the next 72hrs. abstain from the use of alcohol and utilize community support groups and PCP if needed. Drink clear liquids and stay hydrated. Instructions: Pancreatitis (DC), Pancreatitis (GEN) Care Plan Goals: -Improve pain -abstain from etoh -increase hydration Patient Disposition: HOME SELF-CARE Prescriptions: New hydrocodone-acetaminophen 5-325 mg tablet 1 tab PO Q8H MDD 3 tabs PRN (Reason: pain) Qty: 9 0RF Rx Instructions: take 1 tab for pain every 8hrs as needed for severe pain Continued fluticasone propionate 50 mcg/actuation spray,suspension See Rx Instructions .ROUTE .COMPLEX Qty: 16 3RF Dose Instruction: USE ONE SPRAY DAILY IN EACH NOSTRIL (WILL LAST 60 DAYS) Rx Instructions: USE ONE SPRAY DAILY IN EACH NOSTRIL (WILL LAST 60 DAYS) omeprazole 20 mg capsule,delayed release(DR/EC) See Rx Instructions .ROUTE .COMPLEX Qty: 90 0RF Dose Instruction: TAKE ONE CAPSULE DAILY GENERIC FOR PRILOSEC (9.99) Rx Instructions: TAKE ONE CAPSULE DAILY GENERIC FOR PRILOSEC (9.99) gabapentin 100 mg capsule 100 mg PO BID PRN (Reason: pain) Did you review [place] [employer] for ALL controlled substances?: Yes Discussed opioids are addictive and Narcan is available by prescription or from pharmacy.: Yes Condition: Fair Referrals: PAMELLA MORENO APRN,[facility] [Primary Care Provider] - 11/17/23 3:00 pm
== END 2023-11-14 11:15 | disposition home or self-care (01) ==
LOC: MEDSURG B 17:46 → ED 17:46 → MEDSURG B 21:13
PROVIDERS: ADMIT Hospitalist; ATTEND Physician Assistant
DX: R74.01 Elevation of levels of liver transaminase levels; K76.0 Fatty (change of) liver, not elsewhere classified; M81.0 Age-related osteoporosis without current pathological fracture; R11.2 Nausea with vomiting, unspecified; Z20.822 Contact with and (suspected) exposure to COVID-19; F17.210 Nicotine dependence, cigarettes, uncomplicated; F10.10 Alcohol abuse, uncomplicated; Z51.81 Encounter for therapeutic drug level monitoring; K21.9 Gastro-esophageal reflux disease without esophagitis; Z79.899 Other long term (current) drug therapy; K85.20 Alcohol induced acute pancreatitis without necrosis or infection